=== PATIENT | male | born 1945 | race Caucasian/White ===

== ENCOUNTER 2020-11-18 08:20 | Outpatient (CLI) | payer OTHER | END 2020-11-18 23:59 | disposition home or self-care (01) | LOC: RAD 08:20 | DX: T87.44 Infection of amputation stump, left lower extremity (principal) | CPT/HCPCS: 78315; 78800; A9503; A9570 ==

== ENCOUNTER 2020-12-29 11:08 | Day surgery (SDC) | payer OTHER ==
[~2020-12-29] VITALS: Ht 177.8 cm; Wt 190.0 kg
[~2020-12-29 11:08] MED LIST: AMLO5TAB16 PO; ASCO500T28 PO; ATEN50TA8 PO; ATOR10TA70 PO; CHOL100017 PO; CLOT30CR19 TOP; CYAN500T71 PO; DICL100G30 TOP; FENO145T38 PO; FLUO15OI15 TP; LISI1TAB29 PO; MULT-1085 PO; OMEG-15 PO; OMEP-50 PO; PARO20TA6 PO; TEST75GE TOP; UBID10CA4 PO; [UNRECOGNIZED DRUG - CODE] PO
[2020-12-29 12:56] VITALS: BP 136/75
== END 2020-12-29 12:30 | disposition home or self-care (01) ==
LOC: WOUND CARE 11:08
PROVIDERS: ATTEND Internal Medicine
DX: Z45.2 Encounter for adjustment and management of vascular access device (principal)
CPT/HCPCS: 36573; 76937

== ENCOUNTER → 2020-12-31 | Day surgery (SDC) | payer OTHER ==
[2020-12-24 11:34] LABS: BASOPHILS # (AUTO) 0.1 X10'3 (0-0.2); EOSINOPHILS # (AUTO) 0.2 X10'3 (0-0.9); EOSINOPHILS % (AUTO) 1.8 % (0-6); LYMPHOCYTES # (AUTO) 1.6 X10'3 (1.1-4.8); LYMPHOCYTES % (AUTO) 19.4 % (21-51); MEAN CORPUSCULAR HEMOGLOBIN 33.7 PG (27.0-31.0); MEAN CORPUSCULAR HGB CONC 34.7 g/dL (33.0-36.5); MEAN CORPUSCULAR VOLUME 97.4 FL (78-98); MEAN PLATELET VOLUME 8.8 FL (7.4-10.4); MONOCYTES # (AUTO) 1.3 X10'3 (0-0.9); NEUTROPHILS # (AUTO) 5.1 X10'3 (1.8-7.7); NEUTROPHILS % (AUTO) 61.8 % (42-75); PRE OP HEMATOCRIT 42.6 % (42.0-52.0); PRE OP HEMOGLOBIN 14.8 g/dL (14.0-17.9); PRE OP PLATELET COUNT 262 X10'3 (140-440); RED BLOOD COUNT 4.38 X10'6 (4.70-6.10); RED CELL DISTRIBUTION WIDTH 12.3 % (11.5-14.5)
[2020-12-24 11:45] LABS: ALBUMIN 3.8 G/DL (3.4-5.0); ALKALINE PHOSPHATASE 101 IU/L (46-116); BLOOD UREA NITROGEN 31 MG/DL (7-18); BUN/CREATININE RATIO 24.8 (5.4-32.0); C-REACTIVE PROTEIN 0.19 MG/DL (0.0-0.5); CALCIUM 9.5 MG/DL (8.5-10.1); CHLORIDE 100 MMOL/L (99-107); CREATININE 1.25 MG/DL (0.60-1.10); PRE OP ALT 22 U/L (30-65); PRE OP ANION GAP 11 (8-16); PRE OP AST 25 U/L (10-37); PRE OP GLUCOSE 106 MG/DL (70-104); PRE OP POTASSIUM 4.4 MMOL/L (3.4-5.1); PRE OP SODIUM 139 MMOL/L (135-145); TOTAL CARBON DIOXIDE 27.6 MMOL/L (24-32); TOTAL PROTEIN 7.7 G/DL (6.4-8.2); eGFR 57 ML/MIN
[2020-12-31] VITALS (11 sets, daily range): BP systolic 112–147; BP diastolic 64–75
[~2020-12-31] VITALS: Ht 177.8 cm; Wt 89.9 kg
[~2020-12-31] MED LIST changes: +BUPIVAcaine/PF 2.5 mg/ml (0.25%) 30ml vial ONE; +DOCUMENT DATE & TIME OF BETA-BLOCKER PO ONE; +LIDOcaine 2% (20mg/ml) 5ml vial ONE; +bacitracin 15gm ointment TP ONE; +cefazolin/dext.iso 2gm/100ml IV ONE; +dexamethasone sod phosphate 10mg/ml inj ONE; +famotidine 20mg tablet PO ONE; +fentaNYL/PF 50MCG/1 ML 2ML syringe IV PRN; +hydrALAZINE 20mg/ml inj. IV PRN; +labetalol 20mg/4ml (5mg/ml) syringe IV PRN; +morphine 10mg/ml inj. ONE; +morphine 2 MG/ML inj. syringe IV PRN; +morphine 4 MG/ML inj SYRINge IV PRN; +ondansetron/PF 4mg/2ml inj IV PRN; +ondansetron/PF 4mg/2ml inj ONE; +propofol inj 20 ML IV ONE; +ringers solution, lacted 1,000 ML IV SCH; +sevoflurane 250ml liquid IH ONE; +vancomycin 1,000mg inj ONE
--- NOTE | 2020-12-31 11:52 | NUR ---
PATIENT STATES HE HAS PICC LINE ON RIGHT UPPER ARM INSERTED [address] SURESH NOTIFIED AND OK WITH THE PICC LINE FOR ANESTHESIA WITHOUT A NEW PERIPHERAL IV. Addendum: 12/31/20 at 1218 by Roxann Choi RN Amended: Links added.
--- NOTE | 2020-12-31 12:32 | NUR ---
Received from OR via , accompanied by Anesthesiologist DR CRONIN and report given by Anesthesiolgist. PT PRESENTS WITH PIIC LINE UPPER RIGHT ARM, DRESSING ON LOWER LEFT LIMP DRY AND INTACT. VSS. Addendum: 12/31/20 at 1240 by Nancy Barros RN RN Amended: Links added.
--- NOTE | 2020-12-31 14:01 | NUR ---
PT DC HOME WITH . DC INSTRUCTIONS REVIEWED WITH PT, PT HAS NO FURTHER QUESTIONS AT THIS TIME. PT WHEELED OUT OF RECOVERY. PT VSS. Addendum: 12/31/20 at 1402 by Nancy Barros RN, RN Amended: Links added.
== END | disposition home or self-care (01) ==
LOC: PAS 09:30
PROVIDERS: ATTEND Podiatrist Foot & Ankle Surgery
DX: M86.8X6 Other osteomyelitis, lower leg (principal); L98.492 Non-pressure chronic ulcer of skin of other sites with fat layer exposed; I10 Essential (primary) hypertension; E78.5 Hyperlipidemia, unspecified; K21.9 Gastro-esophageal reflux disease without esophagitis; M19.90 Unspecified osteoarthritis, unspecified site; Z89.512 Acquired absence of left leg below knee; Z98.49 Cataract extraction status, unspecified eye; Z87.891 Personal history of nicotine dependence; Z72.89 Other problems related to lifestyle
CPT/HCPCS: 27360; 80053; 82948; 85025; 85651; 86140; 87070; 87075; 87102; 87176; A6222; J1100; J2001; J2270; J2405; J2704; J3370; J3490; A4215; A4618; A6253; A6449; A7000; J7120

== ENCOUNTER 2021-01-10 13:55 | Outpatient (CLI) | payer OTHER ==
[~2021-01-10 13:55] MED LIST changes: -BUPIVAcaine/PF 2.5 mg/ml (0.25%) 30ml vial ONE; -DOCUMENT DATE & TIME OF BETA-BLOCKER PO ONE; -LIDOcaine 2% (20mg/ml) 5ml vial ONE; -bacitracin 15gm ointment TP ONE; -cefazolin/dext.iso 2gm/100ml IV ONE; -dexamethasone sod phosphate 10mg/ml inj ONE; -famotidine 20mg tablet PO ONE; -fentaNYL/PF 50MCG/1 ML 2ML syringe IV PRN; -hydrALAZINE 20mg/ml inj. IV PRN; -labetalol 20mg/4ml (5mg/ml) syringe IV PRN; -morphine 10mg/ml inj. ONE; -morphine 2 MG/ML inj. syringe IV PRN; -morphine 4 MG/ML inj SYRINge IV PRN; -ondansetron/PF 4mg/2ml inj IV PRN; -ondansetron/PF 4mg/2ml inj ONE; -propofol inj 20 ML IV ONE; -ringers solution, lacted 1,000 ML IV SCH; -sevoflurane 250ml liquid IH ONE; -vancomycin 1,000mg inj ONE
[2021-01-10 14:22] LABS: BASOPHILS # (AUTO) 0.1 X10'3 (0-0.2); BASOPHILS % (AUTO) 1.3 % (0-1); EOSINOPHILS # (AUTO) 0.1 X10'3 (0-0.9); EOSINOPHILS % (AUTO) 1.9 % (0-6); HEMATOCRIT 40.1 % (42.0-52.0); LYMPHOCYTES # (AUTO) 1.5 X10'3 (1.1-4.8); LYMPHOCYTES % (AUTO) 20.1 % (21-51); MEAN CORPUSCULAR HEMOGLOBIN 33.3 PG (27.0-31.0); MEAN CORPUSCULAR HGB CONC 34.8 g/dL (33.0-36.5); MEAN CORPUSCULAR VOLUME 95.7 FL (78-98); MEAN PLATELET VOLUME 8.9 FL (7.4-10.4); MONOCYTES # (AUTO) 1.2 X10'3 (0-0.9); MONOCYTES % (AUTO) 15.8 % (2-12); NEUTROPHILS # (AUTO) 4.7 X10'3 (1.8-7.7); NEUTROPHILS % (AUTO) 60.9 % (42-75); PLATELET COUNT 303 X10'3 (140-440); RED BLOOD COUNT 4.19 X10'6 (4.70-6.10); RED CELL DISTRIBUTION WIDTH 12.3 % (11.5-14.5); WHITE BLOOD COUNT 7.7 X10'3 (4.5-11.0)
[2021-01-10 14:31] LABS: ALANINE AMINOTRANSFERASE 17 U/L (12-78); ALBUMIN 3.4 G/DL (3.4-5.0); ALBUMIN/GLOBULIN RATIO 0.9 (1.1-1.5); ALKALINE PHOSPHATASE 101 IU/L (46-116); ANION GAP 10 (8-16); ASPARTATE AMINO TRANSFERASE 27 U/L (10-37); BILIRUBIN,TOTAL 0.6 MG/DL (0.1-1.0); BLOOD UREA NITROGEN 24 MG/DL (7-18); BUN/CREATININE RATIO 24.2 (5.4-32.0); CALCIUM 9.5 MG/DL (8.5-10.1); CHLORIDE 99 MMOL/L (99-107); CREATININE 0.99 MG/DL (0.60-1.10); GLUCOSE 119 MG/DL (70-104); POTASSIUM 4.4 MMOL/L (3.5-5.1); SODIUM 139 MMOL/L (135-145); TOTAL CARBON DIOXIDE 30.2 MMOL/L (24-32); eGFR 74 ML/MIN
== END 2021-01-10 23:59 | disposition home or self-care (01) ==
LOC: LAB 13:55
PROVIDERS: ATTEND Registered Nurse
DX: M86.162 Other acute osteomyelitis, left tibia and fibula (principal); B95.7 Other staphylococcus as the cause of diseases classified elsewhere
CPT/HCPCS: 36415; 80053; 85025

== ENCOUNTER 2021-11-11 05:32 | Day surgery (SDC) | payer MEDICARE, OTHER ==
[2021-11-04 14:43] LABS: BASOPHILS # (AUTO) 0.1 X10'3 (0-0.2); EOSINOPHILS # (AUTO) 0.2 X10'3 (0-0.9); EOSINOPHILS % (AUTO) 3.2 % (0-6); LYMPHOCYTES # (AUTO) 1.7 X10'3 (1.1-4.8); LYMPHOCYTES % (AUTO) 32.1 % (21-51); MEAN CORPUSCULAR HEMOGLOBIN 32.5 PG (27.0-31.0); MEAN CORPUSCULAR HGB CONC 34.5 g/dL (33.0-36.5); MEAN CORPUSCULAR VOLUME 94.3 FL (78-98); MEAN PLATELET VOLUME 8.9 FL (7.4-10.4); MONOCYTES # (AUTO) 0.8 X10'3 (0-0.9); MONOCYTES % (AUTO) 14.2 % (2-12); NEUTROPHILS # (AUTO) 2.7 X10'3 (1.8-7.7); NEUTROPHILS % (AUTO) 49.5 % (42-75); PRE OP HEMOGLOBIN 14.5 g/dL (14.0-17.9); PRE OP PLATELET COUNT 250 X10'3 (140-440); RED BLOOD COUNT 4.46 X10'6 (4.70-6.10)
[2021-11-04 14:50] LABS: ALBUMIN 3.6 G/DL (3.4-5.0); ALKALINE PHOSPHATASE 99 IU/L (46-116); BLOOD UREA NITROGEN 24 MG/DL (7-18); BUN/CREATININE RATIO 25.3 (5.4-32.0); CHLORIDE 102 MMOL/L (99-107); CREATININE 0.95 MG/DL (0.60-1.10); PRE OP ALT 32 U/L (30-65); PRE OP ANION GAP 11 (8-16); PRE OP AST 36 U/L (10-37); PRE OP BILIRUB, TOTAL 0.7 MG/DL (0.0-1.0); PRE OP GLUCOSE 128 MG/DL (70-104); PRE OP POTASSIUM 3.8 MMOL/L (3.4-5.1); PRE OP SODIUM 138 MMOL/L (135-145); TOTAL CARBON DIOXIDE 24.6 MMOL/L (24-32); TOTAL PROTEIN 7.2 G/DL (6.4-8.2); eGFR 77 ML/MIN
[~2021-11-11] VITALS: Ht 177.8 cm; Wt 93.9 kg
[~2021-11-11 05:32] MED LIST changes: -ASCO500T28 PO; -CHOL100017 PO; -CLOT30CR19 TOP; -CYAN500T71 PO; +DOCUMENT DATE & TIME OF BETA-BLOCKER PO ONE; -FLUO15OI15 TP; +LISI10TA27 PO; -LISI1TAB29 PO; -MULT-1085 PO; -OMEG-15 PO; -OMEP-50 PO; +OMEP20CA16 PO; -UBID10CA4 PO; +ceFAZolin inj. 2,000 MG in dextrose 5%-water 100 ML IV ONE; +famotidine 20mg tablet PO ONE; +ringers solution, lacted 1,000 ML IV SCH
[2021-11-11 05:40] VITALS: BP 129/75
[2021-11-11] MEDS ORDERED: OMEG-156 PO (06:10)
[2021-11-11] MEDS ORDERED: UBID10CA4 PO (06:10)
[2021-11-11] MEDS ORDERED: BUPIVAcaine 0.5% inj/PF 30 ML ONE (06:43)
[2021-11-11] MEDS ORDERED: LIDOcaine 0.5% (5mg/ml) 50ml vial ONE (07:29)
[2021-11-11] MEDS ORDERED: fentaNYL/PF 50MCG/1 ML 2ML syringe ONE (08:26)
[2021-11-11] MEDS ORDERED: midazolam 1 mg/ML 2ml injection ONE (08:37)
[2021-11-11] MEDS ORDERED: BUPIVAcaine 0.5% inj/PF 30 ml vial IJ ONE (08:41)
[2021-11-11 08:53] VITALS: BP 137/82
--- NOTE | 2021-11-11 08:53 | NUR ---
Received from OR via [facility], accompanied by Anesthesiologist DR. HOLGUIN and report given by Anesthesiolgist AND OR NURSE. PT ARRIVED AWAKE ON ROOM AIR. VSS. DENIES PAIN OR NAUSEA. PT HAS FEELING TO LEFT HAND BUT STATES IT IS STILL NUMB, HAND WRAPPED IN [place] BANDAGE C/D/I. CAP REFILL WNL. ICE APPLIED. IV RUNNING LR TO 20 G IV TO RIGHT WRIST. LEFT BKA WOUND NOTED, DRESSING C/D/I. WILL CONTINUE TO MONITOR. Addendum: 11/11/21 at 0906 by Meryl Rojas RN Amended: Links added.
[2021-11-11 09:03] VITALS: BP 129/79
[2021-11-11 09:13] VITALS: BP 122/73
[2021-11-11 09:23] VITALS: BP 127/75
[2021-11-11 09:33] VITALS: BP 134/77
--- NOTE | 2021-11-11 09:43 | NUR ---
PT HAS MET D/C CRITERIA. IV D/C'D. VSS. DRESSING C/D/I. ICE INTACT. PT STILL HAS NUMBNESS TO LEFT HAND WHICH IS TO BE EXPECTED AND MD AWARE. I HAVE REVIEWED D/C INSTRUCTIONS WITH PATIENT AND HE HAS VERBALIZED UNDERSTANDING OF INSTRUCTIONS. PATIENT D/C HOME WITH ALL BELONGINGS AND FAMILY GAVE TRANSPORT. Addendum: 11/11/21 at 0963 by Meryl Rojas RN Amended: Links added.
== END 2021-11-11 09:43 | disposition home or self-care (01) ==
LOC: PAS 05:32
PROVIDERS: ATTEND Orthopaedic Surgery Hand Surgery
DX: G56.02 Carpal tunnel syndrome, left upper limb (principal); M65.332 Trigger finger, left middle finger; I10 Essential (primary) hypertension; K21.9 Gastro-esophageal reflux disease without esophagitis; E78.5 Hyperlipidemia, unspecified; M19.071 Primary osteoarthritis, right ankle and foot; M19.011 Primary osteoarthritis, right shoulder; E66.8 Other obesity; Z68.29 Body mass index [BMI] 29.0-29.9, adult; M17.0 Bilateral primary osteoarthritis of knee; Z20.822 Contact with and (suspected) exposure to COVID-19; Z79.899 Other long term (current) drug therapy; Z89.512 Acquired absence of left leg below knee; Z98.890 Other specified postprocedural states; Z98.1 Arthrodesis status; Z87.891 Personal history of nicotine dependence; Z72.89 Other problems related to lifestyle
CPT/HCPCS: 26055; 36415; 64721; 80053; 82948; 85025; 93005; J0690; J2250; J3010; J3490; J7060; J7120; S0020; U0003; U0005; Z7512; A4215; A6222; A6449

== ENCOUNTER 2022-09-22 13:19 | Emergency (ER) | payer OTHER, MEDICARE ==
[~2022-09-22] VITALS: Ht 177.8 cm; Wt 91.0 kg
[~2022-09-22 13:19] MED LIST changes: +ASCO1TAB13 PO; +CHOL100017 PO; +CYAN500T71 PO; -DOCUMENT DATE & TIME OF BETA-BLOCKER PO ONE; +FLO0.4C PO; +HYDR-3965 PO; -LISI10TA27 PO; +LISI1TAB53 PO; +MULT-1219 PO; +MUPI22OI30 TOP; +UBID10CA4 PO; +[UNRECOGNIZED DRUG - CODE] PO; -ceFAZolin inj. 2,000 MG in dextrose 5%-water 100 ML IV ONE; -famotidine 20mg tablet PO ONE; -ringers solution, lacted 1,000 ML IV SCH
[2022-09-22 13:23] VITALS: BP 121/52
[2022-09-22] MEDS ORDERED: SULF1TAB49 PO (14:19)
[2022-09-22] MEDS ORDERED: CEPH250T PO (14:19)
--- NOTE | 2022-09-27 14:38 | NUR ---
DR ESQUIVEL CALLED AND SPOKE WITH PT REGARDING LAB DRAWN ON 09/22/22 AND INFORMED PT THAT A CHANGE IN THE ABX PERSCRIBED WAS NEEDED. PT REQUESTED THAT NEW RX BE CALLED TO [facility] IN [facility]. LEVOFLOXACIN 500MG, 1 PO QD x7 DAYS WAS CALLED TO [facility] IN [facility] REQUESTED
[2022-09-30] MEDS ORDERED: HYDR-3965 PO (12:14)
== END 2022-09-22 15:11 | disposition home or self-care (01) ==
LOC: ER 13:19
DX: T81.40XA Infection following a procedure, unspecified, initial encounter (principal); I10 Essential (primary) hypertension; E78.00 Pure hypercholesterolemia, unspecified
CPT/HCPCS: 87070; 87077; 87186; 99284; A6213

== ENCOUNTER 2022-09-29 11:01 | Emergency (ER) | payer OTHER, MEDICARE ==
[~2022-09-29] VITALS: Ht 177.8 cm; Wt 93.2 kg
[~2022-09-29 11:01] MED LIST changes: +CEPH250T PO; +SULF1TAB49 PO
[2022-09-29] MEDS ORDERED: HYDROcodone/acetaminophen 10/325mg tab PO ONE (13:10)
[2022-09-29 14:22] LABS: BASOPHILS # (AUTO) 0.1 X10'3 (0-0.2); BASOPHILS % (AUTO) 0.8 % (0-1); EOSINOPHILS # (AUTO) 0.1 X10'3 (0-0.9); EOSINOPHILS % (AUTO) 1.1 % (0-6); HEMATOCRIT 31.7 % (42.0-52.0); HEMOGLOBIN 10.7 g/dl (14.0-17.9); LYMPHOCYTES # (AUTO) 1.2 X10'3 (1.1-4.8); LYMPHOCYTES % (AUTO) 18.1 % (21-51); MEAN CORPUSCULAR HEMOGLOBIN 30.8 PG (27.0-31.0); MEAN CORPUSCULAR HGB CONC 33.7 g/dL (33.0-36.5); MEAN CORPUSCULAR VOLUME 91.2 FL (78-98); MEAN PLATELET VOLUME 8.3 FL (7.4-10.4); MONOCYTES # (AUTO) 0.7 X10'3 (0-0.9); MONOCYTES % (AUTO) 9.9 % (2-12); NEUTROPHILS # (AUTO) 4.7 X10'3 (1.8-7.7); NEUTROPHILS % (AUTO) 70.1 % (42-75); PLATELET COUNT 307 X10'3 (140-440); RED BLOOD COUNT 3.48 X10'6 (4.70-6.10); RED CELL DISTRIBUTION WIDTH 14.5 % (11.5-14.5); WHITE BLOOD COUNT 6.7 X10'3 (4.5-11.0)
[2022-09-29 14:46] LABS: ALANINE AMINOTRANSFERASE 15 U/L (12-78); ALBUMIN 3.7 G/DL (3.4-5.0); ALBUMIN/GLOBULIN RATIO 1.1 (1.1-1.5); ALKALINE PHOSPHATASE 80 IU/L (46-116); ANION GAP 10 (8-16); ASPARTATE AMINO TRANSFERASE 20 U/L (10-37); BILIRUBIN,TOTAL 0.9 MG/DL (0.1-1.0); BLOOD UREA NITROGEN 31 MG/DL (7-18); BUN/CREATININE RATIO 29.8 (10.0-20.0); CALCIUM 9.5 MG/DL (8.5-10.1); CHLORIDE 99 MMOL/L (99-107); CREATININE 1.04 MG/DL (0.60-1.10); GLUCOSE 118 MG/DL (70-104); POTASSIUM 4.5 MMOL/L (3.5-5.1); SODIUM 135 MMOL/L (135-145); TOTAL CARBON DIOXIDE 26.1 MMOL/L (24-32); eGFR 70 ML/MIN
[2022-09-29 15:01] LABS: C-REACTIVE PROTEIN 0.86 MG/DL (0.0-0.5)
[2022-09-29] MEDS ORDERED: propofol 1000mg/100ml bottle 200 ML IV PRN (15:05)
--- NOTE | 2022-09-29 16:29 | NUR ---
Pt moved from ER fast track D to ER Rm 6.
--- NOTE | 2022-09-29 18:13 | NUR ---
WASTED 850MG OF PROPROFOL WITH MIMI RN
[2022-09-29] MEDS ORDERED: HYDR-3972 PO (18:43)
[2022-09-29 19:36] VITALS: BP 130/64
[2022-09-30] MEDS ORDERED: HYDR-3965 PO (12:14)
== END 2022-09-29 19:40 | disposition home or self-care (01) ==
LOC: ER 11:02
DX: S72.092A Other fracture of head and neck of left femur, initial encounter for closed fracture (principal); X58.XXXA Exposure to other specified factors, initial encounter; Y93.89 Activity, other specified; Y92.89 Other specified places as the place of occurrence of the external cause; Y99.8 Other external cause status
CPT/HCPCS: 27256; 36415; 72170; 73502; 80053; 85025; 85651; 86140; 99285; A4615

== ENCOUNTER 2022-10-11 11:33 | Emergency (ER) | payer OTHER, MEDICARE ==
[~2022-10-11] VITALS: Ht 177.8 cm; Wt 91.8 kg
[~2022-10-11 11:33] MED LIST changes: -CEPH250T PO; -SULF1TAB49 PO
[2022-10-11 12:49] LABS: BASOPHILS % (AUTO) 0.6 % (0-1); EOSINOPHILS # (AUTO) 0.1 X10'3 (0-0.9); EOSINOPHILS % (AUTO) 1.7 % (0-6); HEMATOCRIT 28.1 % (42.0-52.0); HEMOGLOBIN 9.4 g/dl (14.0-17.9); LYMPHOCYTES # (AUTO) 0.9 X10'3 (1.1-4.8); LYMPHOCYTES % (AUTO) 13.3 % (21-51); MEAN CORPUSCULAR HEMOGLOBIN 29.9 PG (27.0-31.0); MEAN CORPUSCULAR HGB CONC 33.4 g/dL (33.0-36.5); MEAN CORPUSCULAR VOLUME 89.4 FL (78-98); MONOCYTES # (AUTO) 1.4 X10'3 (0-0.9); MONOCYTES % (AUTO) 19.4 % (2-12); NEUTROPHILS # (AUTO) 4.6 X10'3 (1.8-7.7); PLATELET COUNT 421 X10'3 (140-440); RED BLOOD COUNT 3.14 X10'6 (4.70-6.10); RED CELL DISTRIBUTION WIDTH 15.2 % (11.5-14.5)
[2022-10-11] MEDS ORDERED: fluconazole 100mg tablet PO ONE (12:55)
[2022-10-11] MEDS ORDERED: propofol 10mg/ml 20ml vial IV ONE (13:00)
[2022-10-11 13:03] LABS: APTT 31 SECONDS (22-32)
[2022-10-11] MEDS ORDERED: ondansetron/PF 4mg/2ml inj IV ONE (13:20)
[2022-10-11] MEDS ORDERED: LORazepam 2 mg/ml vial IV ONE (13:20)
[2022-10-11 13:43] LABS: ALANINE AMINOTRANSFERASE 44 U/L (12-78); ALBUMIN 2.7 G/DL (3.4-5.0); ALBUMIN/GLOBULIN RATIO 0.6 (1.1-1.5); ALKALINE PHOSPHATASE 77 IU/L (46-116); ANION GAP 8 (8-16); ASPARTATE AMINO TRANSFERASE 37 U/L (10-37); BILIRUBIN,TOTAL 0.5 MG/DL (0.1-1.0); BLOOD UREA NITROGEN 18 MG/DL (7-18); BUN/CREATININE RATIO 26.1 (10.0-20.0); CALCIUM 9.4 MG/DL (8.5-10.1); CHLORIDE 100 MMOL/L (99-107); CREATININE 0.69 MG/DL (0.60-1.10); GLUCOSE 96 MG/DL (70-104); POTASSIUM 3.9 MMOL/L (3.5-5.1); SODIUM 136 MMOL/L (135-145); TOTAL CARBON DIOXIDE 27.7 MMOL/L (24-32); TOTAL PROTEIN 7.1 G/DL (6.4-8.2); eGFR > 90 ML/MIN
[2022-10-11 13:57] LABS: PLATELET ESTIMATE NORMAL; TOTAL CELLS COUNTED 100
[2022-10-11 14:22] VITALS: BP 128/64
[2022-10-11] MEDS ORDERED: HYDROcodone/acetaminophen 10/325mg tab PO ONE (14:30)
--- NOTE | 2022-10-11 14:40 | NUR ---
PER , [facility] IS USED FOR TRANSPORT. ETA 15-20 MINS
--- NOTE | 2022-10-11 14:57 | NUR ---
UPDATED ETA 1600
== END 2022-10-11 17:05 | disposition home or self-care (01) ==
LOC: ER 11:33
DX: T84.021A Dislocation of internal left hip prosthesis, initial encounter (principal); E78.00 Pure hypercholesterolemia, unspecified; I10 Essential (primary) hypertension; Z79.899 Other long term (current) drug therapy; Z79.1 Long term (current) use of non-steroidal anti-inflammatories (NSAID); Z79.2 Long term (current) use of antibiotics; X58.XXXA Exposure to other specified factors, initial encounter; Y93.89 Activity, other specified; Y92.89 Other specified places as the place of occurrence of the external cause; Y99.8 Other external cause status
CPT/HCPCS: 27256; 72170; 80053; 85007; 85025; 85610; 85730; 96374; 96375; 99152; 99285; J2060; J2405; J2704; J7030; 94760; A4620

== ENCOUNTER 2023-02-09 13:21 | Outpatient (CLI) | payer MEDICARE, OTHER ==
[~2023-02-09 13:21] MED LIST changes: +ASCO-134 PO; -ASCO1TAB13 PO; +CADE40GE2 TOP; +CALC200T PO; -DICL100G30 TOP; +DICL100G59 TOP; +FENO145T25 PO; -FENO145T38 PO; -HYDR-3965 PO; -MUPI22OI30 TOP; -UBID10CA4 PO; +[UNRECOGNIZED DRUG - CODE] PO; -[UNRECOGNIZED DRUG - CODE] PO
== END 2023-02-09 23:59 | disposition home or self-care (01) ==
LOC: VAS 13:21
PROVIDERS: ATTEND Physician Assistant
DX: M79.89 Other specified soft tissue disorders (principal); M17.11 Unilateral primary osteoarthritis, right knee; M62.838 Other muscle spasm; R29.898 Other symptoms and signs involving the musculoskeletal system; Z96.642 Presence of left artificial hip joint; Z89.512 Acquired absence of left leg below knee
CPT/HCPCS: 93971

== ENCOUNTER 2024-11-07 17:13 | Inpatient (IN) | payer OTHER, MEDICARE ==
[~2024-11-07] VITALS: Ht 177.8 cm; Wt 93.2 kg
[~2024-11-07 17:13] MED LIST changes: -FLO0.4C PO; +TAMS-55 PO
--- NOTE | 2024-11-07 19:55 | Physician Documentation ---
History of Present Illness ~ Chief Complaint: Hip pain Stated Complaint: HIP PAIN Time Seen by MD: 19:49 OK to notify your PCP?: Yes Primary Medical Doctor: Julienne Fong MD Source: patient, RN/, RN notes reviewed Exam Limitations: no limitations HPI 79 year old male, with a history of left hip ORIF and left BKA, [facility] due to concerns of a right hip fracture. Patient fell off of an exam table on 10/22/24 at an ENT office, landing on the right hip. He had some pain at the time but it was not severe. X-ray at that time did not show a fracture. However, since the fall, patient has had increased pain and difficulty lifting the right leg; he does not walk but normally stands to transfer. Patient visited the [facility] today where he had a CT of the head lower extremity that showed: mildly displaced subcapital right femoral neck fracture. CT HAS BEEN UPLOADED INTO PACS. Medication Reconciliation Allergies: Coded Allergies: No Known Allergies (Unverified , 11/07/24) Scheduled Amlodipine Besylate (Amlodipine Besylate), 1 TAB PO BID, (Reported) Ascorbic Acid (Ascorbic Acid), 2 TAB PO DAILY, (Reported) Atenolol (Atenolol), 1 TAB PO HS, (Reported) Atorvastatin Calcium (Atorvastatin Calcium), 1 TAB PO DAILY, (Reported) Baclofen (Baclofen), 1-2 TAB PO HS, (Reported) Cadexomer Iodine (Iodosorb), 1 APPLIC TOP MWF, (Reported) Calcium Citrate (Calcium Citrate), 3 TAB PO DAILY, (Reported) Cholecalciferol (Vitamin D3) (Vitamin D3), 1 TAB PO DAILY, (Reported) Cyanocobalamin* (Vitamin B-12*), 1 TAB PO DAILY, (Reported) Fenofibrate Nanocrystallized (Fenofibrate), 1 TAB PO DAILY, (Reported) Fluticasone Propionate (Fluticasone Propionate), 100 MCG BROCK DAILY, (Reported) Lidocaine (Lidocaine), 2 PATCH TOP DAILY, (Reported) Lisinopril/Hydrochlorothiazide (Lisinopril-Hctz 20-25 mg Tab), 1 TAB PO DAILY, (Reported) Multivitamin (One-Daily Multi-Vitamin), 1 TAB PO DAILY, (Reported) Omeprazole (Omeprazole), 1 CAP PO DAILY, (Reported) Paroxetine HCl (Paroxetine HCl), 10 MG PO DAILY, (Reported) Tamsulosin Hcl* (Flomax*), 1 CAP PO DAILY, (Reported) Testosterone (Androgel), 1 PUMP TOP Mon,Wed,Fri, Sat, (Reported) Scheduled PRN Acetaminophen (Acetaminophen), 2 TAB PO DAILY PRN for pain, (Reported) Diclofenac Sodium (Diclofenac Sodium), 2 GM TOP QID PRN for arthritis pain, (Reported) Etodolac (Etodolac), 1 TAB PO TID PRN for arthritis, (Reported) Gabapentin (Gabapentin), 3 CAP PO HS PRN for pain, (Reported) Hydrocodone Bit/Acetaminophen (Hydrocodon-Acetaminophen 5-325), 1 TAB PO TID PRN for pain, (Reported) [artificial saliva], 1-2 SPR HS PRN for dry mouth, (Reported) Past Medical History Past Medical History: High Cholesterol, Hypertension, Myocardial Infarction, *GI/HEPATOBILIARY* (Alcoholic hepatitis), Diverticulosis, GERD, *MUSCULOSKELETAL*, Arthritis, Extremity Fracture, Osteoarthritis, Anxiety, Depression Past Surgical History: orthopedic surgeries Patient History: Subarachnoid hemorrhage MOTHER Alcohol Use: Alcoholic Lives with: Spouse Lives In: Home Occupation: retired Review of Systems All Other Systems at this time: Reviewed and Negative ROS As stated above in the HPI, otherwise all systems are reviewed and negative. Physical Exam Vital Signs: RN Vital Signs have been reviewed: Yes, Temperature: 98.2, Heart Rate: 66, Respiratory Rate: 14, BP: 127/92, Pulse Oximetry: 97, Weight: 93.180 Pulse Oximetry Reflects: adequate oxygenation Physical Exam General: The patient is well developed, well nourished, nontoxic appearing and is in no acute distress. Skin: [place], warm and dry with no rashes. HEENT: Head was normocephalic and atraumatic. Chest: Clear to auscultation bilaterally without wheezes, rales or rhonchi. No accessory muscle use. No dullness to percussion. Heart: Rate regular and rhythmic. S1, S2. No murmurs. Palpation of the chest wall was normal. No rubs or thrills. Extremities: Right hip of held in extension. Pitting edema of RLE. Left BKA. Neurologic: Motor and sensation grossly intact. Cranial nerves II-XII grossly intact. A & O x4. Psychologic: Normal mood and affect. No agitation. Progress Progress Note 2049: Case discussed with Dr. Velásquez, orthopedic surgeon, who reviewed the imaging will consult and take him to surgery tomorrow. 2058: Case discussed with internal medicine resident, who agrees to evaluate the patient for admission. Results/Orders Reviewed/noted all lab results: Yes Results/Orders Orders - JULIENNE FONG MD Hip Unilateral 2 Views (11/07/24 19:53) Chest,Single View (11/07/24 19:51) Monitor (11/07/24 19:51) Saline Lock (11/07/24 19:51) Oxygen (11/07/24:51) Electrocardiogram (11/07/24:51) Page Hospitalist (11/07/24 20:51) Fill Out Med Reconciliation (11/07/24 20:51) Completed Orders - JUILENNE FONG MD Hip Unilateral 2 Views (11/07/24 19:53) Chest,Single View (11/07/24 19:51) Cbc/Diff (11/07/24 19:51) PBNP (11/07/24 19:51) Electrocardiogram (11/07/24 19:51) CMP (11/07/24 19:51) Hs Troponin I W Calculations (11/07/24 19:51) Hs Troponin I W Calculations (11/07/24 21:51) Hs Troponin I W Calculations (11/07/24 22:51) Morphine 4mg/Ml Inj. (Morphine Inj.) (11/07/24 19:55) Pt Inr (11/07/24 20:45) PTT (11/07/24 20:45) Type And Screen (11/07/24 20:45) Hydromorphone 1 Mg/Ml/Pf (Dilaudid Inj.) (11/07/24 20:55) Ua W/Microscopic, Cult If Ind (11/07/24 21:42) Laboratory Tests Test 11/07/24 20:03 11/07/24 21:05 White Blood Count 9.3 Red Blood Count 3.75 L Hemoglobin 11.6 L Hematocrit 34.1 L Mean Corpuscular Volume 91.1 Mean Corpuscular Hemoglobin 30.8 Mean Corpuscular Hemoglobin Concent 33.9 Red Cell Distribution Width 14.2 Platelet Count 368 Mean Platelet Volume 8.7 Neutrophils (%) (Auto) 62.3 Lymphocytes (%) (Auto) 20.8 L Monocytes (%) (Auto) 11.5 Eosinophils (%) (Auto) 4.6 Basophils (%) (Auto) 0.8 Neutrophils # (Auto) 5.8 Lymphocytes # (Auto) 1.9 Monocytes # (Auto) 1.1 H Eosinophils # (Auto) 0.4 Basophils # (Auto) 0.1 CBC Comment Sodium Level 139 Potassium Level 4.2 Chloride Level 104 Carbon Dioxide Level 26.9 Anion Gap 8 Blood Urea Nitrogen 44 H Creatinine 0.99 Estimated GFR/1.73 m2 73 BUN/Creatinine Ratio 44.4 H Glucose Level 107 H Calcium Level 9.3 Total Bilirubin 0.7 Aspartate Amino Transf (AST/SGOT) 16 Alanine Aminotransferase (ALT/SGPT) 18 Alkaline Phosphatase 77 Troponin I High Sensitivity 5 Pro-B-Type Natriuretic Peptide 210 Total Protein 7.4 Albumin 3.5 Globulin 3.9 Albumin/Globulin Ratio 0.9 L Chemistry Comments Prothrombin Time 11.9 INR International Normalized Ratio 1.2 Activated Partial Thromboplast Time 28 Coagulation Comments Re-Evaluation Re-Evaluation : Re-Evaluation: Improved, Unchanged Progress Patient was seen and examined. Patient was given reassurance. Patient had a deformity of his leg and was held in extension. Patient received morphine and later Dilaudid. Laboratory work was obtained. Laboratory work shows CBC within normal limits H and H is 11 and 34. Chemistry within normal limits with an elevated BUN of 44 creatinine 0.99. LFTs within normal limits LFTs within normal limits. Troponin x3 negative. Urinalysis shows positive nitrates leukocyte esterase trace WBCs 5-10 consistent with a UTI 2+ bacteria as well. Preoperative workup was then started. Orthopedic surgery as well as the hospitalist service were consulted for further admission and care. Most to why the patient fell laboratory work did not show any signs of infection other than UTI. No significant anemia or electrolyte abnormalities. Also mechanical fall was considered. Continuous quality assurance monitor interpretation shows normal sinus rhythm heart rate 60s, no ectopy, normal, my interpretation. Pulse oximetry monitor interpretation shows normal oxygenation 97% room air, normal, my interpretation. EKG/XRAY/CT/US/VASC/MRI Bone/Soft Tissue X-Ray (Ext.) : Additional Comment 2004: left hip series interpreted by me to show displaced right subcapital femoral fracture, hardware consistent with history of left hip ORIF, no dislocation. Medical Decision Making Additional info obtained from: old records Differential Dx:Considerations: Include: Avascular necrosis, Arthritis, Arthritis-Rheumatoid, Arthritis-Septic, Bursitis, Contusion, Dislocation, DJD, Fracture-femur, Fracture-hip, Fracture-open, Fracture-pelvis, Gout, Hernia, Roln-[id number]-[id number] dz., Neurovascular injury, Slip capital femoral epip, Sprain, Transient synovitis, Other Departure Time of Disposition: 20:51 Disposition: 09 ADMITTED INPATIENT Admitted to Inpatient Unit: yes, to hospitalist Impression: Primary Impression: Subcapital fracture of right femur Qualified Codes: S72.011A - Unspecified intracapsular fracture of right femur, initial encounter for closed fracture Additional Impression: Fall Qualified Codes: W19.XXXA - Unspecified fall, initial encounter Condition: Fair Referrals: NO PRIMARY CARE PROVIDER (PCP) Education Educated: Patient Educated regarding: diagnosis, need for follow up Signature Scribe Signature: Scribed for Julienne Fong MD by Gui White . 11/07/24 20:11 Attestation: The note accurately reflects work and decisions made by me.Julienne Fong MD 11/07/24 19:55 JULIENNE FONG MD November 07, 2024 19:55 GUI HANNAH November 07, 2024 20:13
--- NOTE | 2024-11-07 20:06 | ELECTROCARDIOGRAPH REPORT ---
[facility] Test Date: 2024-11-07 Test Time: 20:03:05 Pat Name: RICHELLE BLAKE Department: EMERGENCY ROOM Room: ED 9 Gender: M Campaign Manager: BRIAN : 1945 Requested By: JULIENNE CONNELLY Order Number: [id number] Reading MD: Dr. Julienne Connelly Measurements Intervals [place] Rate: 61 P: 34 FL: 49 QRS: -2 QRSD: 172 T: 29 QT: 474 QTc: 478 Interpretive Statements Sinus rhythm Short FL interval Right bundle branch block Electronically Signed On 11-07-2024 22:15:[address] Julienne Connelly Please click the below link to view image of tracing.
[2024-11-07] MEDS: morphine 4 MG/ML inj SYRINge IV ONE (20:08)
[2024-11-07 20:11] LABS: BASOPHILS # (AUTO) 0.1 X10'3 (0-0.2); BASOPHILS % (AUTO) 0.8 % (0-1); EOSINOPHILS # (AUTO) 0.4 X10'3 (0-0.9); EOSINOPHILS % (AUTO) 4.6 % (0-6); HEMATOCRIT 34.1 % (42.0-52.0); HEMOGLOBIN 11.6 g/dl (14.0-17.9); LYMPHOCYTES # (AUTO) 1.9 X10'3 (1.1-4.8); LYMPHOCYTES % (AUTO) 20.8 % (21-51); MEAN CORPUSCULAR HEMOGLOBIN 30.8 PG (27.0-31.0); MEAN CORPUSCULAR HGB CONC 33.9 g/dL (33.0-36.5); MEAN CORPUSCULAR VOLUME 91.1 FL (78-98); MEAN PLATELET VOLUME 8.7 FL (7.4-10.4); MONOCYTES # (AUTO) 1.1 X10'3 (0-0.9); MONOCYTES % (AUTO) 11.5 % (2-12); NEUTROPHILS # (AUTO) 5.8 X10'3 (1.8-7.7); NEUTROPHILS % (AUTO) 62.3 % (42-75); PLATELET COUNT 368 X10'3 (140-440); RED BLOOD COUNT 3.75 X10'6 (4.70-6.10); RED CELL DISTRIBUTION WIDTH 14.2 % (11.5-14.5); WHITE BLOOD COUNT 9.3 X10'3 (4.5-11.0)
[2024-11-07 20:37] LABS: ALANINE AMINOTRANSFERASE 18 U/L (12-78); ALBUMIN 3.5 G/DL (3.4-5.0); ALBUMIN/GLOBULIN RATIO 0.9 (1.1-1.5); ALKALINE PHOSPHATASE 77 IU/L (46-116); ANION GAP 8 (8-16); ASPARTATE AMINO TRANSFERASE 16 U/L (10-37); BILIRUBIN,TOTAL 0.7 MG/DL (0.1-1.0); BLOOD UREA NITROGEN 44 MG/DL (7-18); BUN/CREATININE RATIO 44.4 (10.0-20.0); CALCIUM 9.3 MG/DL (8.5-10.1); CHLORIDE 104 MMOL/L (99-107); CREATININE 0.99 MG/DL (0.60-1.10); GLUCOSE 107 MG/DL (70-104); POTASSIUM 4.2 MMOL/L (3.5-5.1); PRO BRAIN NATRIURETIC PEPTIDE 210 PG/ML (0-450); SODIUM 139 MMOL/L (135-145); TOTAL CARBON DIOXIDE 26.9 MMOL/L (24-32); TOTAL PROTEIN 7.4 G/DL (6.4-8.2); eCRCL 65 ML/MIN; eGFR 73 ML/MIN
[2024-11-07] MEDS: HYDROmorphone 1 mg/ml syringe IV ONE (21:02)
[2024-11-07 21:37] LABS: APTT 28 SECONDS (22-32); INR 1.2 INR; PROTHROMBIN TIME 11.9 SECONDS (9.0-12.0)
[2024-11-07 21:53] LABS: BILIRUBIN,URINE MODERATE (Neg); CLARITY,URINE CLEAR (Clear); COLOR,URINE YELLOW (Yellow); GLUCOSE, URINE NEGATIVE (Neg); KETONES,URINE NEGATIVE (Neg); LEUKOCYTE ESTERASE ,URINE TRACE (Neg); NITRITES, URINE POSITIVE (Neg); OCCULT BLOOD,URINE NEGATIVE (Neg); PROTEIN,URINE NEGATIVE (Neg); UROBILINOGEN,URINE 0.2 E.U/dL (0.2-1.0)
[2024-11-07 21:56] LABS: UA COLLECTION TYPE CLN CATCH MIDSTREAM
[2024-11-07 21:58] LABS: RBC,URINE NONE SEEN /HPF (0-2)
[2024-11-07 21:59] LABS: BACTERIA,URINE 2+ /HPF (Neg); SQUAMOUS EPITHELIAL CELL,UR NONE SEEN /LPF (FEW)
[2024-11-07] MEDS ORDERED: magnesium sulf-water 4G/100mL 100 ML IV PRN (22:10)
[2024-11-07] MEDS ORDERED: potassium Cl 40MEQ/1/2NS 520ml 520 ML IV PRN (22:10)
[2024-11-07] MEDS ORDERED: potassium Cl 20 mEq SR tablet PO PRN (22:10)
[2024-11-07] MEDS ORDERED: mag hydrox/Alum hydrox/simeth 30ml oral suspension PO PRN (22:10)
[2024-11-07] MEDS ORDERED: ondansetron/PF 4mg/2ml inj IV PRN (22:10)
[2024-11-07] MEDS ORDERED: magnesium sulf-water 2g/50mL 50 ML IV PRN (22:10)
[2024-11-07] MEDS ORDERED: FLUT16SP NAS (22:23)
[2024-11-07] MEDS ORDERED: LIDO700A47 TOP (22:23)
[2024-11-07] MEDS ORDERED: BACL10TA2 PO (22:23)
[2024-11-07] MEDS ORDERED: HYDR-3964 PO (22:23)
[2024-11-07] MEDS ORDERED: ARTIFICIAL SALIVA (22:23)
[2024-11-07] MEDS ORDERED: GABA-530 PO (22:25)
[2024-11-07] MEDS: CefTRIAXone/D5W-Rocephin 1gm 50 ML IV SCH (22:31)
[2024-11-07] MEDS: normal saline 1000ml 1,000 ML IV SCH (22:35)
--- NOTE | 2024-11-07 22:55 | HISTORY AND PHYSICAL-Residence ---
History & Physical Providers to CC Resident Creating Document: GUITERREZ DICKINSON, RES ~ History of Present Illness Primary Medical Doctor: Andrzej Fong MD Reason for Admit\Complaint: Right displaced femoral neck fracture History of Present Illness 79-year-old male past medical history of hypertension, depression, osteoarthritis, left BKA, chronic wounds in the right lower extremity was sent to the ED [facility] for evaluation and management of a right hip fracture. The patient reports that he was at the [facility] on 10/22/2024 for a ENT evaluation during which he had fall while transferring himself from his wheelchair to the examination table. At that time there was x-ray of the hip done which was negative for any fractures and the patient was sent home. Since then the patient has been having pain in his right hip and inner thigh and has been having difficulty moving or lifting his right leg. He reports that the pain and the difficulty moving his right lower extremity did not improve over time and hence the patient presented to the [facility] today for further evaluation. He had a CT scan of the hip done today at the [facility] which showed mildly displaced subcapital right femoral neck fracture. Allergies: Coded Allergies: No Known Allergies (Unverified , 11/07/24) Home Medications Home Medications Active Reported Gabapentin 100 Mg Capsule 3 Cap PO HS PRN 30 Days [artificial saliva] 1-2 Spr HS PRN Baclofen 10 Mg Tablet 1-2 Tab PO HS Hydrocodon-Acetaminophen 5-325 (Hydrocodone Bit/Acetaminophen) 5 Mg-325 Mg Tablet 1 Tab PO TID PRN Lidocaine 5 % Adh..patch 2 Patch TOP DAILY Fluticasone Propionate 50 Mcg/Actuation [place].susp 100 Mcg BROCK DAILY Fenofibrate 145 Mg Tablet 1 Tab PO DAILY Etodolac 400 Mg Tablet 1 Tab PO TID PRN 30 Days Calcium Citrate 200 Mg Tablet 3 Tab PO DAILY 30 Days Iodosorb (Cadexomer Iodine) 40 Gm Gel..gm. 1 Applic TOP MWF 30 Days Ascorbic Acid 500 Mg Tablet 2 Tab PO DAILY 30 Days One-Daily Multi-Vitamin (Multivitamin) 1 Each Tablet 1 Tab PO DAILY 30 Days Acetaminophen 500 Mg Tablet 2 Tab PO DAILY PRN 15 Days Vitamin B-12* (Cyanocobalamin) 500 Mcg Tablet 1 Tab PO DAILY 30 Days Vitamin D3 (Cholecalciferol (Vitamin D3)) 25 Mcg Tablet 1 Tab PO DAILY Lisinopril-Hctz 20-25 mg Tab (Lisinopril/Hydrochlorothiazide) 1 Each Tablet 1 Tab PO DAILY Flomax* (Tamsulosin HCl) 0.4 Mg Cap.sr.24h 1 Cap PO DAILY Omeprazole 20 Mg Capsule.dr 1 Cap PO DAILY Atorvastatin Calcium 10 Mg Tablet 1 Tab PO DAILY Atenolol 50 Mg Tablet 1 Tab PO HS Paroxetine HCl 20 Mg Tablet 10 Mg PO DAILY Diclofenac Sodium 100 Gm Gel..gram. 2 Gm TOP QID PRN Amlodipine Besylate 5 Mg Tablet 1 Tab PO BID Androgel (Testosterone) 75 Gm Gel..shingle trimmer 1 Pump TOP SUN,SUN,SUN, SAT 1.62% pump - 4 times per week on Mondays, Wednesdays, Fridays and Saturdays (or Sundays if not Saturdays) Past Medical History Past Medical History hypertension, depression, osteoarthritis, left BKA, chronic wounds in the right lower extremity Past Surgical History Surgical History Comment Right below-knee amputation Left hip replacement Family History Family History: Subarachnoid hemorrhage MOTHER Past Social History Social History Comment Lives at home with his . Occasional alcohol Denies smoking or recreational drug use. Alcohol Use: Alcoholic Lives with: Spouse Lives In: Home Occupation: retired ROS All Other Systems: Reviewed and Negative ROS As stated above in the HPI, otherwise all systems are reviewed and negative. Exam Vitals: Vital Signs Date Time Temp Pulse Resp B/P (MAP) Pulse Ox O2 Delivery O2 Flow Rate FiO2 11/07/24 22:40 62 18 147/68 (94) 93 0 11/07/24 17:30 98.2 General: General: Awake and Alert, no acute distress. HEENT: Conjunctiva pink, Sclera clear, Mucus Membranes moist. Neck: Supple without masses and tenderness. Resp: Unlabored. Lungs clear to auscultation bilaterally. Heart: Regular Rate and rhythm, normal S1 and S2 without murmur, rub or gallop. Abdomen: Soft and non tender no organomegaly Extremities: Left below-knee amputation. Right lower extremity externally rotated, pain in the groin and hip area on minimal manipulation of the right leg. There is open wound in the right cough and right plantar area. Skin: Warm and Dry. Neurology: Cranial nerves 2-12 intact. Focal motor or sensory deficits. Diagnostic Data Last Recorded Lab Results: 11/07/24200211/07/242002 Diagnostic Data: Laboratory Tests Test 11/07/24 21:05 Prothrombin Time 11.9 SECONDS (9.0-12.0) INR International Normalized Ratio 1.2 INR Activated Partial Thromboplast Time 28 SECONDS (22-32) Coagulation Comments Advance Care Planning Advanced Care planning: Add on additional 30 min Additional Plan Displaced subcapital right femoral neck fracture Dr. Velásquez, the on-call release specialist has been consulted by the ER physician. The patient is planned to undergo surgery tomorrow. We will continue supportive care. Pain management with IV Dilaudid 0.5 mg q.4 hours for severe pain. NPO after midnight. SCDs for DVT prophylaxis. Consult physical therapy post surgery once cleared by the surgeon. UTI The patient's urine analysis positive for nitrates, leukocyte esterase, 5-10 WBCs, 2+ bacteria. Follow up with the urine culture and blood culture. Started the patient on IV ceftriaxone 1 g daily. History of hypertension Anxiety Osteoarthritis Chronic pain syndrome Restart home medications once med reconciliation is done. CODE STATUS: Full code DVT prophylaxis: SCDs GI prophylaxis: None Diet: NPO after midnight Disposition: Admitting the patient for the management of her right subcapital femoral neck fracture. Gutierrez Dickinson MD Internal Medicine Resident, PGY-2 Date of Service: November 07, 2024 Billing Provider: LEOPOLDO BUENROSTRO MD,GUTIERREZ MATSON, RES November 07, 2024 22:55
[2024-11-07 23:15] VITALS: BP 128/66; PULSE 69; RESP 18; TEMP 97.8; O2SAT 98
[2024-11-07] MEDS: amLODIPine 5mg tablet PO ONE (23:29)
[2024-11-08] VITALS (24 sets, daily range): BP systolic 124–151; BP diastolic 54–82; PULSE 60–76; RESP 8–18; TEMP 97.5–98.6; O2SAT 93–100
[2024-11-08] MEDS: HYDROcodone/acetaminophen 5mg/325mg tablet PO PRN (00:41)
[2024-11-08] MEDS: HYDROmorphone inj. 0.5 MG/0.5 ML DISP.SYRIN IV PRN (03:31)
[2024-11-08 07:22] LABS: BASOPHILS # (AUTO) 0.1 X10'3 (0-0.2); EOSINOPHILS # (AUTO) 0.4 X10'3 (0-0.9); EOSINOPHILS % (AUTO) 5.7 % (0-6); HEMATOCRIT 30.9 % (42.0-52.0); HEMOGLOBIN 10.5 g/dl (14.0-17.9); LYMPHOCYTES # (AUTO) 2.1 X10'3 (1.1-4.8); LYMPHOCYTES % (AUTO) 26.8 % (21-51); MEAN CORPUSCULAR HGB CONC 33.9 g/dL (33.0-36.5); MEAN CORPUSCULAR VOLUME 91.5 FL (78-98); MEAN PLATELET VOLUME 9.2 FL (7.4-10.4); MONOCYTES % (AUTO) 12.6 % (2-12); NEUTROPHILS # (AUTO) 4.2 X10'3 (1.8-7.7); NEUTROPHILS % (AUTO) 53.9 % (42-75); PLATELET COUNT 340 X10'3 (140-440); RED BLOOD COUNT 3.37 X10'6 (4.70-6.10); RED CELL DISTRIBUTION WIDTH 13.9 % (11.5-14.5); WHITE BLOOD COUNT 7.7 X10'3 (4.5-11.0)
[2024-11-08] MEDS: docusate sod 100mg capsule PO SCH (07:57)
[2024-11-08] MEDS: ringers solution, lacted 1,000 ML IV ONE (08:00)
[2024-11-08] MEDS ORDERED: fentaNYL/PF 50MCG/1 ML 2ML syringe IV PRN ×2 (08:00)
[2024-11-08] MEDS ORDERED: labetalol 20mg/4ml (5mg/ml) syringe IV PRN (08:00)
[2024-11-08] MEDS: ringers solution, lacted 1,000 ML IV SCH (08:00)
[2024-11-08] MEDS ORDERED: hydrALAZINE 20mg/ml inj. IV PRN (08:00)
[2024-11-08] MEDS ORDERED: ondansetron/PF 4mg/2ml inj IV PRN (08:00)
[2024-11-08] MEDS: diazepam 5mg tablet PO ONE (08:00)
[2024-11-08] MEDS: K and/or MAG REPLACEMENT MC SCH (08:00)
[2024-11-08] MEDS ORDERED: morphine 4 MG/ML inj SYRINge IV PRN (08:00)
[2024-11-08 08:07] LABS: ALANINE AMINOTRANSFERASE 15 U/L (12-78); ALBUMIN 3.1 G/DL (3.4-5.0); ALBUMIN/GLOBULIN RATIO 0.8 (1.1-1.5); ALKALINE PHOSPHATASE 65 IU/L (46-116); ANION GAP 9 (8-16); ASPARTATE AMINO TRANSFERASE 15 U/L (10-37); BILIRUBIN,TOTAL 0.6 MG/DL (0.1-1.0); BLOOD UREA NITROGEN 33 MG/DL (7-18); BUN/CREATININE RATIO 42.3 (10.0-20.0); CALCIUM 9.2 MG/DL (8.5-10.1); CHLORIDE 106 MMOL/L (99-107); CREATININE 0.78 MG/DL (0.60-1.10); GLUCOSE 98 MG/DL (70-104); MAGNESIUM 1.7 MG/DL (1.5-2.4); POTASSIUM 3.9 MMOL/L (3.5-5.1); SODIUM 141 MMOL/L (135-145); TOTAL CARBON DIOXIDE 25.9 MMOL/L (24-32); TOTAL PROTEIN 6.8 G/DL (6.4-8.2); eCRCL 82 ML/MIN; eGFR > 90 ML/MIN
--- NOTE | 2024-11-08 09:39 | CONSULTATION REPORT ---
History of Present Illness Providers to CC ~ Reason for Admit\Admit Dx: Right displaced femoral neck fracture Refering MD: Dr Dowell History of Present Illness The patient is a 79-year-old man known to me. He has a history of left hip fracture and left BKA. He presented after [facility] his right hip. He was initially told he did not have a fracture but then returned with the pain and some time later CT scan revealed a right hip fracture. Consultation was obtained for treatment of right hip fracture. He never had prior pain in the right hip or any issues or surgeries in that area. He has had right knee surgery and has some right ankle arthritis as well by history Allergies: Coded Allergies: No Known Allergies (Unverified , 11/07/24) Home Medications Home Medications Active Reported Gabapentin 100 Mg Capsule 3 Cap PO HS PRN 30 Days [artificial saliva] 1-2 Spr HS PRN Baclofen 10 Mg Tablet 1-2 Tab PO HS Hydrocodon-Acetaminophen 5-325 (Hydrocodone Bit/Acetaminophen) 5 Mg-325 Mg Tablet 1 Tab PO TID PRN Lidocaine 5 % Adh..patch 2 Patch TOP DAILY Fluticasone Propionate 50 Mcg/Actuation [place].susp 100 Mcg BROCK DAILY Fenofibrate 145 Mg Tablet 1 Tab PO DAILY Etodolac 400 Mg Tablet 1 Tab PO TID PRN 30 Days Calcium Citrate 200 Mg Tablet 3 Tab PO DAILY 30 Days Iodosorb (Cadexomer Iodine) 40 Gm Gel..gm. 1 Applic TOP MWF 30 Days Ascorbic Acid 500 Mg Tablet 2 Tab PO DAILY 30 Days One-Daily Multi-Vitamin (Multivitamin) 1 Each Tablet 1 Tab PO DAILY 30 Days Acetaminophen 500 Mg Tablet 2 Tab PO DAILY PRN 15 Days Vitamin B-12* (Cyanocobalamin) 500 Mcg Tablet 1 Tab PO DAILY 30 Days Vitamin D3 (Cholecalciferol (Vitamin D3)) 25 Mcg Tablet 1 Tab PO DAILY Lisinopril-Hctz 20-25 mg Tab (Lisinopril/Hydrochlorothiazide) 1 Each Tablet 1 Tab PO DAILY Flomax* (Tamsulosin HCl) 0.4 Mg Cap.sr.24h 1 Cap PO DAILY Omeprazole 20 Mg Capsule.dr 1 Cap PO DAILY Atorvastatin Calcium 10 Mg Tablet 1 Tab PO DAILY Atenolol 50 Mg Tablet 1 Tab PO HS Paroxetine HCl 20 Mg Tablet 10 Mg PO DAILY Diclofenac Sodium 100 Gm Gel..gram. 2 Gm TOP QID PRN Amlodipine Besylate 5 Mg Tablet 1 Tab PO BID Androgel (Testosterone) 75 Gm Gel..human resources temp 1 Pump TOP SUN,SUN,SUN, SAT 1.62% pump - 4 times per week on Mondays, Wednesdays, Fridays and Saturdays (or Sundays if not Saturdays) Past Family History Family History: Subarachnoid hemorrhage MOTHER Physical Exam Last Vital Signs Recorded: Temperature: 97.8, Source: Oral, Heart Rate: 69, Respiratory Rate: 16, BP: 128/66, Pulse Oximetry: 98, Weight: 93.180 General Appearance: alert, WD/WN, no apparent distress EENT: PERRL/EOMI Neck: normal inspection Respiratory: lungs clear Cardiovascular: normal peripheral pulses Extremities Right leg is slightly shortened. There is tenderness with motion of the hip area. The skin is intact. Distal neurovascular exam is intact. There is a scar on the lateral right knee area from prior surgery. Results Diagram Lab Result Diagram: 11/08/2423 11/08/24622 Assessment/Plan Problems/Diagnosis: (1) Subcapital fracture of right femur Additional Plan Treatment of this type of fracture requires hemiarthroplasty. This will be scheduled and performed as soon as possible. I discussed with the patient the nature of the injury and need for surgery. He is familiar with the risks and benefits as he has had surgery on the opposite hip several times. Risks of this type of procedure include but are not limited to infection, bleeding, nerve or vessel damage, dislocation, blood clots and even . He agrees to proceed. Problem Qualifiers (1) Subcapital fracture of right femur: Qualified Codes: S72.011A - Unspecified intracapsular fracture of right femur, initial encounter for closed fracture JACK ROSA Jr., MD November 08, 2024 09:39
[2024-11-08] MEDS: famotidine 20mg tablet PO ONE (10:48)
--- NOTE | 2024-11-08 10:51 | PROGRESS NOTE ---
Daily Progress Note Providers to CC No new complaint today, awaiting to go to OR today ~ Central Line/PICC still needed: No Jorge-Non Protocol Jorge Indications Met/Not Met: F/C Indications Not Met Antibiotic Timeout Antibiotic Ordered?: No MRSA Education MRSA Education Provided to pt: No Subjective As above Objective Vital Signs Date Time Temp Pulse Resp B/P (MAP) Pulse Ox O2 Delivery O2 Flow Rate FiO2 11/08/24 10:20 63 17 97 11/08/24 01:26 Room Air 0.0 11/07/24 23:15 97.8 128/66 (86) Vital signs, stable ,afebrile. Pulse Oximetry reflects adequate oxygenation. General: well developed, well nourished. Awake , alert, and oriented x4, resting comfortably in the bed, in no acute distress . Skin: Warm, dry, no pallor, no rash or petechiae. HEENT: Atraumatic, normocephalic, EOMI, anicteric sclera B; pink conjunctiva; PERRLA, normal oropharynx, moist oral and nasal mucosa. Tympanic membrane , nose , throat clear. Neck: Trachea midline. Supple, full range of motion, no JVD, bruit , hepatojugular reflex , lymphadenopathy or masses, or other lesions Cardiac: Regular rhythm, regular rate no murmurs, rubs, or gallops. Normal S1 and S2, no S3 noticed. PMI is normal. Respiratory: Equal breath sounds bilaterally, no tachypnea; lungs clear to auscultation bilaterally, no wheezing ,rub or rales, or crackles. Chest wall is symmetric and without deformity. No signs of trauma. Chest wall is nontender. No signs of respiratory distress. Resonance is normal upon percussion bilaterally. Gastrointestinal: Abdomen symmetric, non-distended, soft, non-tender, normal bowel sounds x4 quadrant, normoactive, no hepatosplenomegaly , no masses , no bruit, no flank pain bilaterally. No voluntary guarding, rebound, or rigidity. No tenderness to percussion. No pulsatile masses. Equal femoral pulses. No Villagomez's sign or McBurney point tenderness. Back; no CVA tenderness bilaterally, no deformities. Neck and back are without deformity as well. No tenderness noted on palpation of the spinous processes. Spinous processes are midline. Cervical, thoracic, and lumbar paraspinal muscles are not tender and are without spasm. : normal external genitalia, without lesions, swelling, masses or tenderness. Musculoskeletal: Extremities, normal range of motion, non-tender, muscle strength 5/5 x 4. Negative Homans signs bilaterally on lower extremity. Distal pulses full symmetrical, no clubbing, cyanosis , edema. Locally, right hip tender to palpation, left lower extremity shortened extended rotated, neurovascular grossly intact Neurological: Speech is clear, alert, and oriented x 4. No motor or sensory deficit, deep tendon reflexes normal, cerebellar intact. Cranial nerves II-XII intact. Psych: Alert and or appropriate, normal affect. Vascular: Good distal pulses, which are equal x4; capillary refill less than 2 seconds. Lymphatic, no lymphadenopathy. Result Diagram: 11/08/24 0623 11/08/24 0623 Coagulation Studies Laboratory Tests Test 11/07/24 21:05 Prothrombin Time 11.9 SECONDS (9.0-12.0) INR International Normalized Ratio 1.2 INR Activated Partial Thromboplast Time 28 SECONDS (22-32) Coagulation Comments Problem\Assessment\Plan Assessment/Plan Displaced subcapital right femoral neck fracture Dr. Velásquez, the on-call alignment specialist has been consulted by the ER physician. The patient is planned to undergo surgery today We will continue supportive care. Pain management with IV Dilaudid 0.5 mg q.4 hours for severe pain. NPO after midnight. SCDs for DVT prophylaxis. Consult physical therapy post surgery once cleared by the surgeon. UTI The patient's urine analysis positive for nitrates, leukocyte esterase, 5-10 WBCs, 2+ bacteria. Follow up with the urine culture and blood culture. Started the patient on IV ceftriaxone 1 g daily. History of hypertension Anxiety Osteoarthritis Chronic pain syndrome Restart home medications once med reconciliation is done. CODE STATUS: Full code DVT prophylaxis: SCDs Date of Service: November 08, 2024 Billing Provider: CHARLENE KOROMA MD Common Visit Codes: [id number] INP/OBS CARE(HIGH) CHARLENE KOROMA MD November 08, 2024 10:51
[2024-11-08] MEDS ORDERED: vancomycin 1,000mg inj ONE (11:25)
[2024-11-08] MEDS ORDERED: BUPIVAcaine 2.5mg/ml inj 50ml vial (contains preservative) ONE (11:25)
[2024-11-08] MEDS ORDERED: sevoflurane 250ml liquid IH ONE (11:40)
[2024-11-08] MEDS ORDERED: propofol inj 20 ML IV ONE (11:59)
[2024-11-08] MEDS ORDERED: dexamethasone sod phosphate 4mg/ml inj. ONE (11:59)
[2024-11-08] MEDS ORDERED: ondansetron/PF 4mg/2ml inj ONE (11:59)
[2024-11-08] MEDS ORDERED: ceFAZolin 1000mg inj ONE ×2 (12:01→12:02)
[2024-11-08] MEDS ORDERED: fentaNYL/PF 50MCG/1 ML 2ML syringe ONE (12:06)
[2024-11-08] MEDS ORDERED: acetaminophen 1,000mg/100ml IV 100 ML IV ONE (12:29)
--- NOTE | 2024-11-08 13:24 | OPERATIVE REPORT ---
Operative Report Providers to ~ Date of Procedure: November 08, 2024 Pre-Operative Diagnosis: Displaced right femoral neck fracture Post-Operative Diagnosis SAME as PRE-Op Procedure Performed Right hip bipolar cemented hemiarthroplasty Surgeon: Ilir Velásquez MD Quality Supervisor None Anesthesiologist: Jose F Lopez Type of Anesthesia: General Findings: Displaced femoral neck fracture Complications None Prosthetics\\Implants used: Biomet echo FX standard femoral stem size 11 3 mm offset with 51 mm head and-3 mm neck cemented with Simplex antibiotic cement Estimated Blood Loss: 100 mL Specimen Removed: Femoral head Description of Procedure: Pre-op : Mr Leblanc presented to ED at [facility] after a fall. Imaging revealed a right femoral neck fracture. He was admitted to the hospitalist and optimized for surgery. He indicated that he had no prior hip pain and is only a community ambulator.. He has a history of left below-knee amputation and has a left hip hemiarthroplasty placed several years ago. I discussed his diagnosis and the proposed treatment of a hip hemiarthroplasty. The risks of the operation were also explained which included, but not exclusively, bleeding, damage to surrounding structures including fractures, LLD, sciatic nerve palsy, dislocation, infection, loosening, hardware failure, wear, continued pain, need for further surgery etc. PROCEDURE: The patient was checked in the pre-op area. Then the patient was transferred to the OR where the anesthetic was administered . Position: Left lateral position using a pelvic positioner and all bony prominences protected. Axillary roll inserted. The limb was suspended from an IV pole with a 2" bandage dipped in isopropyl alcohol making sure that the skin was safe to do so. The limb was then prepped with Chloroprep, drapped with sterile drapes and leg bag leaving exposed a small aread of skin where the incision would be made. That area of skin was then draped with IOBAN. Timeout was then done, checking the patient, side, operation, instruments, antibiotics, co-morbidities, allergies etc. Curved incision overlying the right greater trochanter curved slightly posteriorly. Skin, fat and deep fascia incised with adequate haemostasis. The superficial layer of the Gluteus Matt aponeurosis incised extending it into the proximal iliotibial band, but with limited violation of the iliotibial band. This was opened and the Gluteus matt split along the length of the fibres. A Charnley retractor was introduced and the sciatic nerve located and protected throughout the case. Posterior Approach: A Sabi retractor was inserted deep to the Gluteus medius muscle and the piriformis exposed as were the triceps tendon and the quadratus. The capsule was incised with a [place] along the superior aspect of the piriformis releasing this and the capsule in one sleeve. The Obterator Internus and gamelli were incised at their insertion and this was carried down to the quadratus. The capsule was incised along the same line and the joint opened out. The hip was then dislocated. It was found at this time that the femoral neck was completely fractured and displaced with significant comminution. The comminuted bone was removed along with the fractured head. Femoral neck cut was made with a saw and broaching was done up to size 12. So a size 11 stem was chosen. The femoral head measured out at 51 mm. Trial reduction was done with the trial components and this seemed to fit well so they were removed and thorough irrigation was done. The canal was then prepped and the cement restrictor was placed at the proper length. Pressurized cement was used and the component was placed and held until the cement cured. The head was then tapped onto the taper and the hip was reduced. Good stability was obtained without any instability. Thorough irrigation was done once again and the capsule was repaired using 0 Vicryl suture. The fascia was closed with 0 Vicryl and the skin was closed in layers. Marcaine was injected and a dressing was applied. Hip wrap was then applied along with a knee immobilizer. The patient was then brought back to the supine position and extubated. He was brought to the recovery room and tolerated the procedure well. Counts repoted as correct: Yes ILIR VELÁSQUEZ Jr., MD November 08, 2024 13:24
[2024-11-08] MEDS: meperidine/PF 100mg/ml syringe IV ONE (14:04)
--- NOTE | 2024-11-08 14:17 | RADIOLOGY REPORT ---
EXAM: XR Pelvis, 1 or 2 Views CLINICAL INDICATION: post op TECHNIQUE: Frontal view of the pelvis. COMPARISON: HIP UNILATERAL 2 VIEWS on DOS: 12/05/22 FINDINGS: BONES/JOINTS: Bilateral hip replacement. Intact hardware. Anatomic position. No acute fracture. No dislocation. SOFT TISSUES: Unremarkable. OTHER FINDINGS: . . IMPRESSION: Postoperative changes as above.
[2024-11-08] MEDS: morphine 2 MG/ML inj. syringe IV PRN (14:47)
[2024-11-08] MEDS: zolpidem 5mg tablet PO PRN (20:53)
[2024-11-09] VITALS (8 sets, daily range): BP systolic 119–153; BP diastolic 53–77; PULSE 61–93; RESP 14–17; TEMP 97.3–101.1; O2SAT 94–98
[2024-11-09 07:13] LABS: BASOPHILS % (AUTO) 0.1 % (0-1); EOSINOPHILS % (AUTO) 0 % (0-6); HEMATOCRIT 27.6 % (42.0-52.0); HEMOGLOBIN 9.4 g/dl (14.0-17.9); LYMPHOCYTES # (AUTO) 0.9 X10'3 (1.1-4.8); LYMPHOCYTES % (AUTO) 8.3 % (21-51); MEAN CORPUSCULAR HEMOGLOBIN 31.2 PG (27.0-31.0); MEAN CORPUSCULAR HGB CONC 34.1 g/dL (33.0-36.5); MEAN CORPUSCULAR VOLUME 91.4 FL (78-98); MEAN PLATELET VOLUME 9.3 FL (7.4-10.4); MONOCYTES # (AUTO) 1.3 X10'3 (0-0.9); MONOCYTES % (AUTO) 12.4 % (2-12); NEUTROPHILS # (AUTO) 8.2 X10'3 (1.8-7.7); NEUTROPHILS % (AUTO) 79.2 % (42-75); PLATELET COUNT 303 X10'3 (140-440); RED BLOOD COUNT 3.02 X10'6 (4.70-6.10); RED CELL DISTRIBUTION WIDTH 13.7 % (11.5-14.5); WHITE BLOOD COUNT 10.3 X10'3 (4.5-11.0)
[2024-11-09 07:34] LABS: ALANINE AMINOTRANSFERASE 10 U/L (12-78); ALBUMIN/GLOBULIN RATIO 0.7 (1.1-1.5); ALKALINE PHOSPHATASE 49 IU/L (46-116); ANION GAP 9 (8-16); ASPARTATE AMINO TRANSFERASE 12 U/L (10-37); BILIRUBIN,TOTAL 0.4 MG/DL (0.1-1.0); BLOOD UREA NITROGEN 14 MG/DL (7-18); BUN/CREATININE RATIO 30.4 (10.0-20.0); CHLORIDE 114 MMOL/L (99-107); CREATININE 0.46 MG/DL (0.60-1.10); GLUCOSE 97 MG/DL (70-104); MAGNESIUM 1.2 MG/DL (1.5-2.4); SODIUM 143 MMOL/L (135-145); TOTAL CARBON DIOXIDE 20.3 MMOL/L (24-32); TOTAL PROTEIN 4.8 G/DL (6.4-8.2); eCRCL 139 ML/MIN; eGFR > 90 ML/MIN
[2024-11-09 07:58] LABS: CALCIUM 6.7 MG/DL (8.5-10.1); POTASSIUM 2.9 MMOL/L (3.5-5.1)
[2024-11-09] MEDS: magnesium hydroxide 30ml (MOM) UD suspension PO PRN (08:58)
[2024-11-09] MEDS: potassium Cl 20 mEq SR tablet PO PRN (08:58)
[2024-11-09] MEDS: magnesium Cl slow-release 64mg tablet PO PRN (08:58)
--- NOTE | 2024-11-09 12:19 | PROGRESS NOTE ---
Progress Note Ortho Ortho Post Op Day #: 1 Follow Up ROS ROS No new complaints Exam Exam: Alert and Oreinted x4, Wound clean and dry Problem/Assessment/Plan Assessment\Plan: Doing Well, Cont. Physicial Therapy Problems/Diagnosis: (1) Subcapital fracture of right femur Results/Orders Result Diagram: 11/09/2463011/09/24630 Problem Qualifiers (1) Subcapital fracture of right femur: Qualified Codes: S72.011A - Unspecified intracapsular fracture of right femur, initial encounter for closed fracture JACK ROSA Jr., MD November 09, 2024 12:19
--- NOTE | 2024-11-09 13:21 | PROGRESS NOTE ---
Daily Progress Note Providers to CC ~ complaint, had an episode of high fever today, pain well controlled asking to be started on his home NSAIDs medications Central Line/PICC still needed: No Jorge-Non Protocol Jorge Indications Met/Not Met: F/C Indications Not Met Antibiotic Timeout Antibiotic Ordered?: Yes MRSA Education MRSA Education Provided to pt: Yes Subjective As above Objective Vital Signs Date Time Temp Pulse Resp B/P (MAP) Pulse Ox O2 Delivery O2 Flow Rate FiO2 11/09/24 10:00 101.1 81 15 122/71 (88) 94 Room Air 11/08/24 20:00 1.0 Vital signs, stable ,afebrile. Pulse Oximetry reflects adequate oxygenation on 1 L oxygen nasal cannula General: well developed, well nourished. Awake , alert, and oriented x4, resting comfortably in the bed, in no acute distress . Skin: Warm, dry, no pallor, no rash or petechiae. HEENT: Atraumatic, normocephalic, EOMI, anicteric sclera B; pink conjunctiva; PERRLA, normal oropharynx, moist oral and nasal mucosa. Tympanic membrane , nose , throat clear. Neck: Trachea midline. Supple, full range of motion, no JVD, bruit , hepatojugular reflex , lymphadenopathy or masses, or other lesions Cardiac: Regular rhythm, regular rate no murmurs, rubs, or gallops. Normal S1 and S2, no S3 noticed. PMI is normal. Respiratory: Equal breath sounds bilaterally, no tachypnea; lungs clear to auscultation bilaterally, no wheezing ,rub or rales, or crackles. Chest wall is symmetric and without deformity. No signs of trauma. Chest wall is nontender. No signs of respiratory distress. Resonance is normal upon percussion bilaterally. Gastrointestinal: Abdomen symmetric, non-distended, soft, non-tender, normal bowel sounds x4 quadrant, normoactive, no hepatosplenomegaly , no masses , no bruit, no flank pain bilaterally. No voluntary guarding, rebound, or rigidity. No tenderness to percussion. No pulsatile masses. Equal femoral pulses. No Villagomez's sign or McBurney point tenderness. Back; no CVA tenderness bilaterally, no deformities. Neck and back are without deformity as well. No tenderness noted on palpation of the spinous processes. Spinous processes are midline. Cervical, thoracic, and lumbar paraspinal muscles are not tender and are without spasm. : normal external genitalia, without lesions, swelling, masses or tenderness. Musculoskeletal: Extremities, normal range of motion, non-tender, muscle strength 5/5 x 4. Negative Homans signs bilaterally on lower extremity. Distal pulses full symmetrical, no clubbing, cyanosis , edema. Locally, right hip, dressing clean dry intact, neurovascular grossly intact Neurological: Speech is clear, alert, and oriented x 4. No motor or sensory deficit, deep tendon reflexes normal, cerebellar intact. Cranial nerves II-XII intact. Psych: Alert and or appropriate, normal affect. Vascular: Good distal pulses, which are equal x4; capillary refill less than 2 seconds. Lymphatic, no lymphadenopathy. Result Diagram: 11/09/24 0631 11/09/24 0631 Coagulation Studies Laboratory Tests Test 11/07/24 21:05 Prothrombin Time 11.9 SECONDS (9.0-12.0) INR International Normalized Ratio 1.2 INR Activated Partial Thromboplast Time 28 SECONDS (22-32) Coagulation Comments Problem\Assessment\Plan Assessment/Plan Displaced subcapital right femoral neck fracture Dr. Velásquez, the on-call organizational development specialist , operated on patient yesterday, postoperative day 1., good recovery, except high fever today We will continue supportive care. Pain management with IV Dilaudid 0.5 mg q.4 hours for severe pain. SCDs for DVT prophylaxis. Consult physical therapy post surgery once cleared by the surgeon. UTI, on Rocephin 1 g IV b.i.d. Sepsis secondary to above CT chest abdomen and pelvis pending The patient's urine analysis positive for nitrates, leukocyte esterase, 5-10 WBCs, 2+ bacteria. Follow up with the urine culture and blood culture. Started the patient on IV ceftriaxone 1 g daily. History of hypertension Anxiety Osteoarthritis Chronic pain syndrome Restart home medications once med reconciliation is done. CODE STATUS: Full code DVT prophylaxis: SCDs Sepsis Screening Reassessment Date: November 09, 2024 Date of Service: November 09, 2024 Billing Provider: CHARLENE KOROMA MD Common Visit Codes: [id number] INP/OBS CARE(HIGH) CHARLENE KOROMA MD November 09, 2024 13:21
--- NOTE | 2024-11-09 16:36 | RADIOLOGY REPORT ---
CLINICAL INFORMATION: 79 years old, Male; Sepsis. TECHNIQUE: Axial CT images of the chest, abdomen, and pelvis were obtained without IV contrast. Veronika nal and sagittal reformatted images were obtained, reviewed, and stored. Evaluation of the parenchyma l organs and vasculature is limited without IV contrast. Evaluation of the bowel and mesentery is limon ited without oral contrast. All CT scans at this medical facility are performed using dose modulation techniques as appropriate to a performed exam including the following: Automated exposure control wa s utilized; adjustment of the MA and/or KV according to patient size; and use of iterative reconstruc tion technique. CTDIvol = 30.6, 26.09 mGy DLP = 2679.11 mGy-cm COMPARISON: Chest radiograph dated 11/07/2024. CT pelvis dated 10/30/2022. FINDINGS: CT CHEST: Aorta: No aneurysm. Moderate atherosclerotic calcification. Cardiac: Heart size is within normal limits. Dense coronary artery calcification and/or stents. Mediastinum/james: Right lower paratracheal lymph node measures up to 0.6 cm in short axis dimension, likely reactive. Calcified right hilar lymph nodes, likely sequela of granulomatous disease. Lungs: Moderate elevation of the left hemidiaphragm with associated atelectasis in the left lung bas e. No focal consolidation, pneumothorax, or pleural effusion. Pulmonary arteries: No gross abnormality. Chest wall: No mass or other abnormality. Bones: No fracture or suspicious intraosseous lesions. Spinal rods and transpedicular screws at T10-T 11 from posterior spinal fusion. Mild chronic anterior compression deformities T6 and T7. Partially v isualized severe osteoarthritic changes in both glenohumeral joints. CT ABDOMEN/PELVIS: Liver: Hepatic steatosis. Small low-attenuation lesions, likely cysts, but suboptimally evaluated du e to motion artifact due to the small size of the smaller lesion. Biliary: Small calcified gallstones in the gallbladder. Spleen: Calcified granulomas in the spleen. Spleen is small in size. Pancreas: Moderate atrophy. Adrenal glands: Unremarkable. No mass. Kidneys: No hydronephrosis. No renal or ureteral calculi. Bilateral fluid density lesions, likely cys ts. Aorta: Dense atherosclerotic calcification. No abdominal aortic aneurysm. Retroperitoneum: No mass or lymphadenopathy. Bowel/mesentery: No small bowel obstruction. Appendix is visualized and appears unremarkable. Scatte red colonic diverticula without adjacent inflammatory changes to suggest diverticulitis. Wall thicken ing of the sigmoid colon, likely due to chronic diverticular disease. Pelvic organs: Prominent beam hardening artifact from the patient's bilateral hip prostheses limits e valuation. Bladder: Limited evaluation due to beam hardening artifact. Abdominal wall: No mass or hernia. Bones: No fracture or focal intraosseous lesion. IMPRESSION: 1. Scattered colonic diverticula without adjacent inflammatory changes to suggest diverticulitis. Cor relate with clinical findings. Wall thickening of the sigmoid colon likely due to chronic diverticula r disease. 2. Cholelithiasis. 3. Hepatic steatosis. 4. Moderate elevation of the left hemidiaphragm with associated atelectasis. No focal consolidation o r other acute abnormality identified in the lungs. 5. Additional nonacute findings as detailed above.
[2024-11-09] MEDS: acetaminophen 325mg tablet PO PRN ×2 (16:46→21:32)
[2024-11-09] MEDS ORDERED: gabapentin 300mg capsule PO PRN (19:30)
[2024-11-09] MEDS ORDERED: HYDROcodone/acetaminophen 5mg/325mg tablet PO PRN (19:30)
[2024-11-09] MEDS: baclofen 10mg tablet PO SCH (19:48)
[2024-11-09] MEDS: atenolol 50mg tablet PO SCH (19:49)
[2024-11-09] MEDS: tamsulosin 0.4mg capsule PO SCH (19:49)
[2024-11-09] MEDS: amLODIPine 5mg tablet PO SCH (19:49)
[2024-11-09] MEDS: CefTRIAXone/D5W-Rocephin 1gm 50 ML IV SCH (19:53)
[2024-11-10 06:00] VITALS: BP 102/63; PULSE 64; RESP 16; TEMP 98.2; O2SAT 98
[2024-11-10 07:07] LABS: BASOPHILS % (AUTO) 0.6 % (0-1); EOSINOPHILS # (AUTO) 0.1 X10'3 (0-0.9); HEMATOCRIT 27.8 % (42.0-52.0); HEMOGLOBIN 9.3 g/dl (14.0-17.9); LYMPHOCYTES # (AUTO) 1.5 X10'3 (1.1-4.8); LYMPHOCYTES % (AUTO) 17.9 % (21-51); MEAN CORPUSCULAR HEMOGLOBIN 30.8 PG (27.0-31.0); MEAN CORPUSCULAR HGB CONC 33.5 g/dL (33.0-36.5); MEAN CORPUSCULAR VOLUME 91.7 FL (78-98); MEAN PLATELET VOLUME 9.8 FL (7.4-10.4); MONOCYTES # (AUTO) 1.4 X10'3 (0-0.9); MONOCYTES % (AUTO) 16.9 % (2-12); NEUTROPHILS # (AUTO) 5.4 X10'3 (1.8-7.7); NEUTROPHILS % (AUTO) 63.6 % (42-75); PLATELET COUNT 303 X10'3 (140-440); RED BLOOD COUNT 3.03 X10'6 (4.70-6.10); RED CELL DISTRIBUTION WIDTH 13.9 % (11.5-14.5); WHITE BLOOD COUNT 8.4 X10'3 (4.5-11.0)
[2024-11-10 07:47] LABS: ALANINE AMINOTRANSFERASE 17 U/L (12-78); ALBUMIN 2.9 G/DL (3.4-5.0); ALBUMIN/GLOBULIN RATIO 0.8 (1.1-1.5); ALKALINE PHOSPHATASE 65 IU/L (46-116); ANION GAP 8 (8-16); ASPARTATE AMINO TRANSFERASE 24 U/L (10-37); BILIRUBIN,TOTAL 0.5 MG/DL (0.1-1.0); BLOOD UREA NITROGEN 17 MG/DL (7-18); BUN/CREATININE RATIO 23.3 (10.0-20.0); CALCIUM 8.9 MG/DL (8.5-10.1); CHLORIDE 105 MMOL/L (99-107); CREATININE 0.73 MG/DL (0.60-1.10); GLUCOSE 98 MG/DL (70-104); MAGNESIUM 1.8 MG/DL (1.5-2.4); POTASSIUM 4.5 MMOL/L (3.5-5.1); SODIUM 138 MMOL/L (135-145); TOTAL CARBON DIOXIDE 25.1 MMOL/L (24-32); TOTAL PROTEIN 6.5 G/DL (6.4-8.2); eCRCL 88 ML/MIN; eGFR > 90 ML/MIN
[2024-11-10 08:00] VITALS: RESP 16; O2SAT 98
[2024-11-10] MEDS ORDERED: CALCIUM CITRATE PO SCH (08:00)
[2024-11-10] MEDS: fenofibrate 145mg tablet PO SCH (08:08)
[2024-11-10] MEDS: pantoprazole 40mg Tablet.DR PO SCH (08:09)
[2024-11-10] MEDS: PARoxetine 10mg tablet PO SCH (08:11)
[2024-11-10] MEDS: atorvastatin 10mg tablet PO SCH (08:11)
[2024-11-10] MEDS: LIDOcaine 5% patch TP SCH (08:34)
[2024-11-10] MEDS: HYDROchlorothiazide 25mg tablet PO SCH (08:35)
[2024-11-10] MEDS: lisinopril 20mg tablet PO SCH (08:35)
[2024-11-10 09:01] LABS: TOTAL CELLS COUNTED 100
[2024-11-10 09:07] LABS: PLATELET ESTIMATE NORMAL
[2024-11-10 10:00] VITALS: BP 126/63; PULSE 69; RESP 15; TEMP 98.5; O2SAT 98
--- NOTE | 2024-11-10 10:08 | RADIOLOGY REPORT ---
EXAM: DI CHEST,SINGLE VIEW Indication: CP Technique: Single frontal view of the chest was obtained Comparison: HIP, SINGLE VIEW on DOS: 12/05/22, CHEST,SINGLE VIEW on DOS: 12/05/22 FINDINGS: Lines and Tubes: None Lungs: Stable elevation of the left hemidiaphragm. Pleura: No effusion. No pneumothorax. Cardiomediastinal contours: Unremarkable Atherosclerotic vascular calcifications of the thoracic aort a are noted. Bones: No acute osseous abnormality. IMPRESSION: No acute cardiopulmonary disease.
--- NOTE | 2024-11-10 10:10 | RADIOLOGY REPORT ---
CLINICAL INDICATION: hip fracture ; TECHNIQUE: 1 radiographic views of the pelvis and 2 views of the right hip were obtained. Comparison: HIP UNILATERAL 2 VIEWS on DOS: 12/05/22 FINDINGS/IMPRESSION: Status post left hip arthroplasty. Right femoral neck displaced fracture.
--- NOTE | 2024-11-10 14:11 | PROGRESS NOTE ---
Progress Note Ortho Ortho Post Op Day #: 2 Follow Up ROS ROS No new complaints Exam Exam: Alert and Oreinted x4, Appropriate, Vital signs are stable, Wound clean and dry, Distal neurovasc intact Problem/Assessment/Plan Assessment\Plan: Cont. Physicial Therapy Problems/Diagnosis: (1) Subcapital fracture of right femur Results/Orders Result Diagram: 11/10/2462211/10/24622 Problem Qualifiers (1) Subcapital fracture of right femur: Qualified Codes: S72.011A - Unspecified intracapsular fracture of right femur, initial encounter for closed fracture JACK ROSA Jr., MD November 10, 2024 14:11
[2024-11-10 18:00] VITALS: BP 128/60; PULSE 71; RESP 16; TEMP 98.7; O2SAT 96
--- NOTE | 2024-11-10 18:23 | PROGRESS NOTE ---
Daily Progress Note Providers to CC ~ no new complaint today, resting comfortably in the bed Central Line/PICC still needed: No Jorge-Non Protocol Jorge Indications Met/Not Met: F/C Indications Not Met Antibiotic Timeout Antibiotic Ordered?: Yes MRSA Education MRSA Education Provided to pt: Yes Subjective As above Objective Vital Signs Date Time Temp Pulse Resp B/P (MAP) Pulse Ox O2 Delivery O2 Flow Rate FiO2 11/10/24 10:00 98.5 69 15 126/63 (84) 98 Room Air 11/09/24 08:55 0.0 Vital signs, stable ,afebrile. Pulse Oximetry reflects adequate oxygenation. General: well developed, well nourished. Awake , alert, and oriented x4, resting comfortably in the bed, in no acute distress . Skin: Warm, dry, no pallor, no rash or petechiae. HEENT: Atraumatic, normocephalic, EOMI, anicteric sclera B; pink conjunctiva; PERRLA, normal oropharynx, moist oral and nasal mucosa. Tympanic membrane , nose , throat clear. Neck: Trachea midline. Supple, full range of motion, no JVD, bruit , hepatojugular reflex , lymphadenopathy or masses, or other lesions Cardiac: Regular rhythm, regular rate no murmurs, rubs, or gallops. Normal S1 and S2, no S3 noticed. PMI is normal. Respiratory: Equal breath sounds bilaterally, no tachypnea; lungs clear to auscultation bilaterally, no wheezing ,rub or rales, or crackles. Chest wall is symmetric and without deformity. No signs of trauma. Chest wall is nontender. No signs of respiratory distress. Resonance is normal upon percussion bilaterally. Gastrointestinal: Abdomen symmetric, non-distended, soft, non-tender, normal bowel sounds x4 quadrant, normoactive, no hepatosplenomegaly , no masses , no bruit, no flank pain bilaterally. No voluntary guarding, rebound, or rigidity. No tenderness to percussion. No pulsatile masses. Equal femoral pulses. No Villagomez's sign or McBurney point tenderness. Back; no CVA tenderness bilaterally, no deformities. Neck and back are without deformity as well. No tenderness noted on palpation of the spinous processes. Spinous processes are midline. Cervical, thoracic, and lumbar paraspinal muscles are not tender and are without spasm. : normal external genitalia, without lesions, swelling, masses or tenderness. Musculoskeletal: Extremities, normal range of motion, non-tender, muscle strength 5/5 x 4. Negative Homans signs bilaterally on lower extremity. Distal pulses full symmetrical, no clubbing, cyanosis , edema. Locally, right hip dressing clean dry intact, neurovascular grossly intact Neurological: Speech is clear, alert, and oriented x 4. No motor or sensory deficit, deep tendon reflexes normal, cerebellar intact. Cranial nerves II-XII intact. Psych: Alert and or appropriate, normal affect. Vascular: Good distal pulses, which are equal x4; capillary refill less than 2 seconds. Lymphatic, no lymphadenopathy. Result Diagram: 11/10/24 0623 11/10/24 0623 Coagulation Studies Laboratory Tests Test 11/07/24 21:05 Prothrombin Time 11.9 SECONDS (9.0-12.0) INR International Normalized Ratio 1.2 INR Activated Partial Thromboplast Time 28 SECONDS (22-32) Coagulation Comments Problem\Assessment\Plan Assessment/Plan Displaced subcapital right femoral neck fracture Dr. Velásquez, the on-call senior talent acquisition specialist , operated on patient yesterday, postoperative day 3., good recovery, except high fever today We will continue supportive care. Pain management with IV Dilaudid 0.5 mg q.4 hours for severe pain. SCDs for DVT prophylaxis. Consult physical therapy post surgery once cleared by the surgeon. UTI, on Rocephin 1 g IV b.i.d. Sepsis secondary to above CT chest abdomen and pelvis completed The patient's urine analysis positive for nitrates, leukocyte esterase, 5-10 WBCs, 2+ bacteria. Follow up with the urine culture and blood culture. Started the patient on IV ceftriaxone 1 g daily. History of hypertension Anxiety Osteoarthritis Chronic pain syndrome Restart home medications once med reconciliation is done. CODE STATUS: Full code DVT prophylaxis: SCDs Anticipated discharge in the morning to rehab facility Sepsis Screening Reassessment Date: November 10, 2024 Date of Service: November 10, 2024 Billing Provider: CHARLENE KOROMA MD Common Visit Codes: [id number] INP/OBS CARE(HIGH) CHARLENE KOROMA MD November 10, 2024 18:23
[2024-11-10] MEDS: ringers solution, lacted 1,000 ML IV SCH (18:58)
[2024-11-10 22:00] VITALS: BP 145/53; PULSE 63; RESP 18; TEMP 97.8; O2SAT 95
[2024-11-11 05:54] LABS: BASOPHILS % (AUTO) 0.6 % (0-1); EOSINOPHILS # (AUTO) 0.2 X10'3 (0-0.9); HEMATOCRIT 26.4 % (42.0-52.0); LYMPHOCYTES # (AUTO) 1.2 X10'3 (1.1-4.8); LYMPHOCYTES % (AUTO) 14.7 % (21-51); MEAN CORPUSCULAR HEMOGLOBIN 31.2 PG (27.0-31.0); MEAN CORPUSCULAR HGB CONC 34.3 g/dL (33.0-36.5); MEAN CORPUSCULAR VOLUME 91.2 FL (78-98); MEAN PLATELET VOLUME 10.1 FL (7.4-10.4); MONOCYTES # (AUTO) 1.4 X10'3 (0-0.9); MONOCYTES % (AUTO) 16.5 % (2-12); NEUTROPHILS # (AUTO) 5.6 X10'3 (1.8-7.7); NEUTROPHILS % (AUTO) 66.2 % (42-75); PLATELET COUNT 314 X10'3 (140-440); RED BLOOD COUNT 2.89 X10'6 (4.70-6.10); RED CELL DISTRIBUTION WIDTH 13.6 % (11.5-14.5); WHITE BLOOD COUNT 8.5 X10'3 (4.5-11.0)
[2024-11-11 06:00] VITALS: BP 137/65; PULSE 57; RESP 18; TEMP 98.2; O2SAT 98
[2024-11-11 06:07] LABS: ALANINE AMINOTRANSFERASE 20 U/L (12-78); ALBUMIN 2.7 G/DL (3.4-5.0); ALBUMIN/GLOBULIN RATIO 0.8 (1.1-1.5); ALKALINE PHOSPHATASE 65 IU/L (46-116); ANION GAP 10 (8-16); ASPARTATE AMINO TRANSFERASE 21 U/L (10-37); BILIRUBIN,TOTAL 0.5 MG/DL (0.1-1.0); BLOOD UREA NITROGEN 12 MG/DL (7-18); BUN/CREATININE RATIO 18.8 (10.0-20.0); CALCIUM 8.6 MG/DL (8.5-10.1); CHLORIDE 101 MMOL/L (99-107); CREATININE 0.64 MG/DL (0.60-1.10); GLUCOSE 100 MG/DL (70-104); MAGNESIUM 1.7 MG/DL (1.5-2.4); POTASSIUM 3.8 MMOL/L (3.5-5.1); SODIUM 136 MMOL/L (135-145); TOTAL CARBON DIOXIDE 25.3 MMOL/L (24-32); TOTAL PROTEIN 6.3 G/DL (6.4-8.2); eCRCL 100 ML/MIN; eGFR > 90 ML/MIN
[2024-11-11 07:36] VITALS: RESP 18; O2SAT 98
[2024-11-11 10:00] VITALS: BP 134/59; PULSE 64; RESP 16; TEMP 98.8; O2SAT 96
--- NOTE | 2024-11-11 18:53 | DISCHARGE SUMMARY ---
Discharge Summary Providers to No new complaint today, ready to be discharged to rehab facility ~ Discharge Summary Assessment Right hip fracture Status post right hip surgery UTI history of hypertension anxiety osteoarthritis chronic pain syndrome Admission Diagnosis: Displaced right femoral neck fracture Admission Diagnosis Comment: Right hip fracture Status post right hip surgery UTI history of hypertension anxiety osteoarthritis chronic pain syndrome Hospital Course DATE OF ADMISSION: November 07, 2024 DATE OF DISCHARGE: November 11, 2024 Discharge Diagnosis\Comment: Right hip fracture Status post right hip surgery UTI history of hypertension anxiety osteoarthritis chronic pain syndrome Operations\Procedures: Right hip surgery Consultants: Orthopedic doctor Complications: None Condition on DC: Stable for transfer Discharge Summary: 79-year-old male past medical history of hypertension, depression, osteoarthritis, left BKA, chronic wounds in the right lower extremity was sent to the ED from the [facility] for evaluation and management of a right hip fracture.The patient reports that he was at the [facility] on 10/22/2024 for a ENT evaluation during which he had fall while transferring himself from his wheelchair to the examination table. At that time there was x-ray of the hip done which was negative for any fractures and the patient was sent home. Since then the patient has been having pain in his right hip and inner thigh and has been having difficulty moving or lifting his right leg. He reports that the pain and the difficulty moving his right lower extremity did not improve over time and hence the patient presented to [facility] for further evaluation. He had a CT scan of the hip done today at the [facility] which showed mildly displaced subcapital right femoral neck fracture. After admission patient was extensively evaluated treated including right hip surgery, recovery was fine, today he has no complaint, ready to be discharged to rehab facility, follow-up PCP in the morning, medication reconciled, today on physical exam Vital signs, stable ,afebrile. Pulse Oximetry reflects adequate oxygenation. General: well developed, well nourished. Awake , alert, and oriented x4, resting comfortably in the bed, in no acute distress . Skin: Warm, dry, no pallor, no rash or petechiae. HEENT: Atraumatic, normocephalic, EOMI, anicteric sclera B; pink conjunctiva; PERRLA, normal oropharynx, moist oral and nasal mucosa. Tympanic membrane , nose , throat clear. Neck: Trachea midline. Supple, full range of motion, no JVD, bruit , hepatojugular reflex , lymphadenopathy or masses, or other lesions Cardiac: Regular rhythm, regular rate no murmurs, rubs, or gallops. Normal S1 and S2, no S3 noticed. PMI is normal. Respiratory: Equal breath sounds bilaterally, no tachypnea; lungs clear to auscultation bilaterally, no wheezing ,rub or rales, or crackles. Chest wall is symmetric and without deformity. No signs of trauma. Chest wall is nontender. No signs of respiratory distress. Resonance is normal upon percussion mitali aterally. Gastrointestinal: Abdomen symmetric, non-distended, soft, non-tender, normal bowel sounds x4 quadrant, normoactive, no hepatosplenomegaly , no masses , no bruit, no flank pain bilaterally. No voluntary guarding, rebound, or rigidity. No tenderness to percussion. No pulsatile masses. Equal femoral pulses. No Villagomez's sign or McBurney point tenderness. Back; no CVA tenderness bilaterally, no deformities. Neck and back are without deformity as well. No tenderness noted on palpation of the spinous processes. Spinous processes are midline. Cervical, thoracic, and lumbar paraspinal muscles are not tender and are without spasm. : normal external genitalia, without lesions, swelling, masses or tenderness. Musculoskeletal: Extremities, normal range of motion, non-tender, muscle strength 5/5 x 4. Negative Homans signs bilaterally on lower extremity. Distal pulses full symmetrical, no clubbing, cyanosis , edema. Neurological: Speech is clear, alert, and oriented x 4. No motor or sensory deficit, deep tendon reflexes normal, cerebellar intact. Cranial nerves II-XII intact. Psych: Alert and or appropriate, normal affect. Vascular: Good distal pulses, which are equal x4; capillary refill less than 2 seconds. Lymphatic, no lymphadenopathy. *Problems/Diagnosis: (1) Subcapital fracture of right femur Status: Acute Total Time Spent on D/C: > 30 Minutes Date of Service: November 11, 2024 Billing Provider: CHARLENE KOROMA MD Common Visit Codes: 78307-WMI/OBS DISCH DAY >30min Problem Qualifiers (1) Subcapital fracture of right femur: Qualified Codes: S72.011A - Unspecified intracapsular fracture of right femur, initial encounter for closed fracture CHARLENE KOROMA MD November 11, 2024 18:53
== END 2024-11-11 13:45 | DRG 522 ==
LOC: ER 17:14 → ORTHO 4S 21:10 → ED HOLD 21:12 → UNDOADMIN 21:12 → ORTHO 4S 23:13 → ED HOLD 23:13
PROVIDERS: ADMIT Internal Medicine Critical Care Medicine; ATTEND Family Medicine
PROC: 0SRR019 Replacement of Right Hip Joint, Femoral Surface with Metal Synthetic Substitute, Cemented, Open Approach (ICD-10-PCS; principal; 2024-11-07)
DX: S72.011A Unspecified intracapsular fracture of right femur, initial encounter for closed fracture (principal); N39.0 Urinary tract infection, site not specified; I10 Essential (primary) hypertension; G89.4 Chronic pain syndrome; F41.9 Anxiety disorder, unspecified; E78.00 Pure hypercholesterolemia, unspecified; F32.A Depression, unspecified; K21.9 Gastro-esophageal reflux disease without esophagitis; K57.30 Diverticulosis of large intestine without perforation or abscess without bleeding; W18.39XA Other fall on same level, initial encounter; Z79.899 Other long term (current) drug therapy; I25.2 Old myocardial infarction; Z89.512 Acquired absence of left leg below knee; Y93.89 Activity, other specified; Y92.89 Other specified places as the place of occurrence of the external cause
CPT/HCPCS: 36415; 71045; 71250; 73502; 74176; 80053; 81001; 82948; 83605; 83735; 83880; 84484; 85007; 85025; 85610; 85730; 86885; 86900; 86901; 87040; 87077; 87081; 87088; 87186; 93005; 96374; 96375; 97110; 97161; 97530; 99285; A4615; A4618; A6212; A6213; A6223; A6250; A6253; A6258; A6446; A6449; A6454; A6590; A7000; C1713; C1776; G0378; J0131; J0690; J0696; J1100; J1171; J2175; J2270; J2405; J2704; J3010; J3370; J3490; J7030; J7120